=== PATIENT | female | born 1945 | race Caucasian/White ===

== ENCOUNTER 2018-01-03 20:20 | Inpatient (IN) | payer MEDICARE, OTHER ==
[2018-01-03] MEDS: DEXTROSE 5%-0.9% NACL 1,000 ML IV ×2 (22:00→22:20)
[2018-01-03] MEDS ORDERED: ACETAMINOPHEN 1000MG/100ML IV 100 ML IVPB (22:00)
[2018-01-03 22:57] LABS: WHITE BLOOD COUNT 7.6 10^3/ul (4.8-10.8)
[2018-01-03 22:57] LABS: ABNORMAL IP MESSAGE 1; HEMATOCRIT 25.4 % (37.0-47.0); HEMOGLOBIN 7.4 g/dl (12.0-16.0); MEAN CORPUSCULAR HEMOGLOBIN 31.2 pg (29.0-33.0); MEAN CORPUSCULAR HGB CONC 29.1 g/dl (32.0-37.0); MEAN CORPUSCULAR VOLUME 107.2 fl (82.0-101.0); MEAN PLATELET VOLUME 10.5 fl (7.4-10.4); NUCLEATED RED BLOOD CELLS% 0.3 /100WBC (0.0-0.0); PLATELET COUNT 123 10^3/UL (140-415); RED BLOOD COUNT 2.37 10^6/ul (4.20-5.40); RED CELL DISTRIBUTION WIDTH 16.6 % (11.5-14.5)
[2018-01-03 22:59] LABS: ADD MAN DIFF? YES; POSITIVE DIFF @See below
[2018-01-03] MEDS: SOD CHLORIDE 0.9% 1,000 ML IV (23:03)
[2018-01-03] MEDS: PHENYLephrine 40 MG in DEXTROSE 5% 496 ML IV (23:24)
[2018-01-03 23:40] LABS: LACTIC ACID 5.5 mmol/L (0.5-2.0)
[2018-01-03 23:51] LABS: ANISOCYTOSIS 1+ (0-0); BAND NEUTROPHILS #M 1.2 10^3/ul (0.0-0.6); BAND NEUTROPHILS % (M) 16 % (0-4); GIANT THROMBO% (M) 2 % (0-0); LYMPHOCYTES #M 0.4 10^3/ul (0.8-2.9); LYMPHOCYTES % (M) 6 % (15-51); MICROCYTOSIS 1+ (0-0); MONOCYTES % (M) 1 % (0-11); MYELOCYTES % (M) 1 % (0-0); PLATELET ESTIMATE DECREASED; POIKILOCYTOSIS 1+ (0-0); POLYCHROMASIA 2+ (0-0); REACTIVE LYMPHOCYTES #M 0.1 10^3/ul (0.0-0.0); REACTIVE LYMPHOCYTES% (M) 2 % (0-0); SEG NEUT #M 5.7 10^3/ul (1.6-7.5); SEGMENTED NEUTROPHILS (M) % 74 % (39-77); SMUDGE%M 5 % (0-0)
[2018-01-04] MEDS: SOD CHLORIDE 0.9% 1,000 ML IV ×4 (00:05→17:52)
[2018-01-04 00:24] LABS: ADD UMIC YES; UR ASCORBIC ACID NEGATIVE (NEGATIVE); UR BACTERIA FEW /HPF (NONE SEEN); UR BILIRUBIN (Dip) 1+ mg/dL (NEGATIVE); UR BLOOD (Dip) 2+ mg/dL (NEGATIVE); UR CLARITY CLOUDY (CLEAR); UR COLOR AMBER (YELLOW); UR GLUCOSE (Dip) NEGATIVE (NEGATIVE); UR KETONES (Dip) TRACE mg/dL (NEGATIVE); UR LEUKOCYTE ESTERASE (Dip) 1+ Leu/ul (NEGATIVE); UR MUCUS FEW /HPF (NONE SEEN); UR NITRITE (Dip) NEGATIVE (NEGATIVE); UR NONSQUAMOUS EPITHELIAL CELL 6 /HPF (NONE SEEN); UR RBC 9 /HPF (0-5); UR SPECIFIC GRAVITY (Dip) 1.021 (1.003-1.030); UR SQUAMOUS EPITHELIAL CELL MANY /HPF (FEW); UR TOTAL PROTEIN (Dip) 1+ mg/dl (NEGATIVE); UR UROBILINOGEN (Dip) 1+ mg/dL (NEGATIVE); UR WBC 16 /HPF (0-5)
[2018-01-04] MEDS: SOD CHLORIDE 0.9% 250 ML IV* (00:49)
[2018-01-04 01:17] LABS: ALANINE AMINOTRANSFERASE 63 IU/L (13-69); ALBUMIN 2.5 g/dl (3.3-4.9); ALKALINE PHOSPHATASE 63 IU/L (42-121); ANION GAP 14 (5-13); ASPARTATE AMINO TRANSFERASE 39 IU/L (15-46); BILIRUBIN,INDIRECT 0.1 mg/dl (0-1.1); BILIRUBIN,TOTAL 0.1 mg/dl (0.2-1.3); BLOOD UREA NITROGEN 25 mg/dl (7-20); CALCIUM 7.5 mg/dl (8.4-10.2); CARBON DIOXIDE 20 mmol/L (21-31); CHLORIDE 99 mmol/L (97-110); Estimated GFR > 60 mL/min (>60); GLUCOSE 191 mg/dl (70-220); POTASSIUM 4.3 mmol/L (3.5-5.1); SODIUM 133 mmol/L (135-144); TOTAL PROTEIN 4.8 g/dl (6.1-8.1)
[2018-01-04 01:18] LABS: ALBUMIN/GLOBULIN RATIO 1.08
[2018-01-04] MEDS: PANTOPRAZOLE 40 MG INJ IV ×2 (05:49→17:45)
[2018-01-04 06:47] LABS: LACTIC ACID 5.1 mmol/L (0.5-2.0)
[2018-01-04 06:55] LABS: ALANINE AMINOTRANSFERASE 60 IU/L (13-69); ALBUMIN 2.6 g/dl (3.3-4.9); ALBUMIN/GLOBULIN RATIO 0.92; ALKALINE PHOSPHATASE 69 IU/L (42-121); ANION GAP 12 (5-13); ASPARTATE AMINO TRANSFERASE 36 IU/L (15-46); BILIRUBIN,INDIRECT 0.4 mg/dl (0-1.1); BILIRUBIN,TOTAL 0.4 mg/dl (0.2-1.3); BLOOD UREA NITROGEN 26 mg/dl (7-20); CALCIUM 7.8 mg/dl (8.4-10.2); CARBON DIOXIDE 19 mmol/L (21-31); CHLORIDE 102 mmol/L (97-110); CREATININE 0.66 mg/dl (0.44-1.00); Estimated GFR > 60 mL/min (>60); GLUCOSE 225 mg/dl (70-220); MAGNESIUM 1.7 mg/dl (1.7-2.5); PHOSPHORUS 4.6 mg/dl (2.5-4.9); POTASSIUM 4.4 mmol/L (3.5-5.1); SODIUM 133 mmol/L (135-144); TOTAL PROTEIN 5.4 g/dl (6.1-8.1)
[2018-01-04] MEDS: PHENYLephrine 40 MG in DEXTROSE 5% 496 ML IV ×2 (06:59→13:27)
[2018-01-04 07:58] LABS: WHITE BLOOD COUNT 8.1 10^3/ul (4.8-10.8)
[2018-01-04 07:58] LABS: ABNORMAL IP MESSAGE 1; HEMATOCRIT 33.6 % (37.0-47.0); HEMOGLOBIN 11.6 g/dl (12.0-16.0); MEAN CORPUSCULAR HEMOGLOBIN 31.4 pg (29.0-33.0); MEAN CORPUSCULAR HGB CONC 34.5 g/dl (32.0-37.0); MEAN CORPUSCULAR VOLUME 90.8 fl (82.0-101.0); MEAN PLATELET VOLUME 11.4 fl (7.4-10.4); NUCLEATED RED BLOOD CELLS% 0.7 /100WBC (0.0-0.0); PLATELET COUNT 136 10^3/UL (140-415); RED CELL DISTRIBUTION WIDTH 14.8 % (11.5-14.5)
[2018-01-04] MEDS ORDERED: VANCOMYCIN IV PER PHARMACY XX (08:00)
[2018-01-04 08:01] LABS: ADD MAN DIFF? YES; POSITIVE DIFF @See below
[2018-01-04] MEDS: DEXAMETHASONE 4 MG/ML 1 ML INJ IV ×3 (09:03→21:54)
[2018-01-04] MEDS: CEFEPIME 1GM/50 ML (PMX) 50 ML IVPB ×2 (09:03→20:49)
[2018-01-04] MEDS ORDERED: GLUCOSE GEL 15 GRAM TUBE PO ×2 (09:30)
[2018-01-04] MEDS ORDERED: DEXTROSE 50% 50 ML SYRINGE IV ×2 (09:30)
[2018-01-04] MEDS ORDERED: GLUCAGON 1 MG INJ IM (09:30)
[2018-01-04] MEDS ORDERED: GLUCOSE GEL 15 GRAM TUBE BUCCAL (09:30)
[2018-01-04] MEDS: LEVETIRACETAM IV 500 MG in DEXTROSE 5% 100 ML IVPB ×2 (09:48→20:46)
[2018-01-04 10:09] LABS: BAND NEUTROPHILS #M 3.1 10^3/ul (0.0-0.6); BAND NEUTROPHILS % (M) 39 % (0-4); ERYTHROBLAST% (NRBC) (M) 1 % (0-0); LYMPHOCYTES #M 1.4 10^3/ul (0.8-2.9); LYMPHOCYTES % (M) 18 % (15-51); METAMYELOCYTES %M 1 % (0-0); MONOCYTE #M 0.3 10^3/ul (0.3-0.9); MONOCYTES % (M) 4 % (0-11); MYELOCYTES % (M) 1 % (0-0); PLATELET ESTIMATE DECREASED; POIKILOCYTOSIS 1+ (0-0); POLYCHROMASIA 1+ (0-0); REACTIVE LYMPHOCYTES #M 0.3 10^3/ul (0.0-0.0); REACTIVE LYMPHOCYTES% (M) 4 % (0-0); SEG NEUT #M 2.9 10^3/ul (1.6-7.5); SEGMENTED NEUTROPHILS (M) % 33 % (39-77); SMUDGE%M 6 % (0-0)
[2018-01-04] MEDS: metroNIDAZOLE 500 MG/NS (PMX) 100 ML IVPB ×3 (10:10→21:54)
[2018-01-04 10:35] LABS: AADO2 Arterial 137.4 mmHg (7.0-24.0); Allen Test ACCEPTAB; Arterial Base Excess -7.6 mmol/L (-3.0-3); Arterial Blood Gas Oxygen Sat 95.9 mmHG (95.0-98.0); Arterial COHb 0.3 % (0.0-3.0); Arterial Fraction of Oxyhgb 95.2 % (93.0-99.0); Arterial HCO3 13.5 mmol/L (22.0-26.0); Arterial MetHb 0.4 % (0.0-1.5); Arterial Total Hemglobin 11.6 g/dl (12.0-18.0); MODE NASAL CANNULA; Site Right Radial
[2018-01-04] MEDS: CYCLOPENTOLATE 1% 2 ML OPH RIGHT EYE ×3 (11:01→20:49)
[2018-01-04] MEDS: VANCOMYCIN 1.75 GM in SOD CHLORIDE 0.9% 500 ML IVPB (11:02)
[2018-01-04] MEDS: INSULIN ASPART [NOVOLOG] 3 ML PEN SC ×3 (13:29→20:56)
[2018-01-04 14:06] LABS: HEMATOCRIT 25.9 % (37.0-47.0); HEMOGLOBIN 8.8 g/dl (12.0-16.0)
[2018-01-04 14:06] LABS: PLATELET COUNT 128 10^3/UL (140-415)
[2018-01-04 14:27] LABS: INR 1.46; PT RATIO 1.4
[2018-01-04 14:32] LABS: PARTIAL THROMBOPLASTIN TIME 32.8 Sec (23.0-35.0)
[2018-01-04 14:36] LABS: D-DIMER 2851.41 ng/ml (<460)
[2018-01-04 14:52] LABS: FIBRIN SPLIT PRODUCT <10 ug/ml (<10)
[2018-01-04 15:47] LABS: THROMBIN TIME 15.4 SEC (13.8-19.1)
[2018-01-04 18:30] LABS: HEMATOCRIT 25.3 % (37.0-47.0); HEMOGLOBIN 8.9 g/dl (12.0-16.0)
[2018-01-05 00:38] LABS: HEMATOCRIT 22.2 % (37.0-47.0); HEMOGLOBIN 7.7 g/dl (12.0-16.0)
[2018-01-05] MEDS: SOD CHLORIDE 0.9% 1,000 ML IV ×4 (00:52→19:00)
[2018-01-05] MEDS: INSULIN ASPART [NOVOLOG] 3 ML PEN SC ×6 (01:25→20:59)
[2018-01-05] MEDS: PHENYLephrine 40 MG in DEXTROSE 5% 496 ML IV (02:56)
[2018-01-05 05:05] LABS: ADD MAN DIFF? NO
[2018-01-05 05:08] LABS: WHITE BLOOD COUNT 9.3 10^3/ul (4.8-10.8)
[2018-01-05 05:08] LABS: ABNORMAL IP MESSAGE 1; BASOPHILS % 0.2 % (0.0-2.0); HEMATOCRIT 20.3 % (37.0-47.0); HEMOGLOBIN 7.1 g/dl (12.0-16.0); LYMPHOCYTES # 0.8 10^3/ul (0.8-2.9); LYMPHOCYTES % 8.2 % (15.0-51.0); MEAN CORPUSCULAR HEMOGLOBIN 31.8 pg (29.0-33.0); MEAN PLATELET VOLUME 10.8 fl (7.4-10.4); MONOCYTE # 0.4 10^3/ul (0.3-0.9); MONOCYTES % 4.6 % (0.0-11.0); NEUTROPHIL # 7.5 10^3/ul (1.6-7.5); NEUTROPHILS % 80.9 % (39.0-77.0); NUCLEATED RED BLOOD CELLS% 0.2 /100WBC (0.0-0.0); PLATELET COUNT 98 10^3/UL (140-415); RED BLOOD COUNT 2.23 10^6/ul (4.20-5.40); RED CELL DISTRIBUTION WIDTH 15.3 % (11.5-14.5)
[2018-01-05 05:23] LABS: HEMOGLOBIN A1C 5.9 % (0-5.9)
[2018-01-05 05:30] LABS: POSITIVE DIFF @See below
[2018-01-05 05:32] LABS: ALANINE AMINOTRANSFERASE 214 IU/L (13-69); ALBUMIN 2.1 g/dl (3.3-4.9); ALBUMIN/GLOBULIN RATIO 0.84; ALKALINE PHOSPHATASE 51 IU/L (42-121); ANION GAP 5 (5-13); ASPARTATE AMINO TRANSFERASE 186 IU/L (15-46); BILIRUBIN,INDIRECT 0.4 mg/dl (0-1.1); BILIRUBIN,TOTAL 0.4 mg/dl (0.2-1.3); BLOOD UREA NITROGEN 29 mg/dl (7-20); CALCIUM 7.5 mg/dl (8.4-10.2); CARBON DIOXIDE 20 mmol/L (21-31); CHLORIDE 108 mmol/L (97-110); CREATININE 0.69 mg/dl (0.44-1.00); Estimated GFR > 60 mL/min (>60); GLUCOSE 156 mg/dl (70-220); SODIUM 133 mmol/L (135-144); TOTAL PROTEIN 4.6 g/dl (6.1-8.1)
[2018-01-05] MEDS: metroNIDAZOLE 500 MG/NS (PMX) 100 ML IVPB ×3 (05:32→21:56)
[2018-01-05] MEDS: DEXAMETHASONE 4 MG/ML 1 ML INJ IV ×3 (05:32→21:56)
[2018-01-05] MEDS: PANTOPRAZOLE 40 MG INJ IV ×2 (05:32→17:11)
[2018-01-05 05:41] LABS: LACTIC ACID 1.4 mmol/L (0.5-2.0)
[2018-01-05 05:57] LABS: FREE T4 (FREE THYROXINE) 0.92 ng/dl (0.78-2.44)
[2018-01-05] MEDS: VANCOMYCIN 1.5 GM in SOD CHLORIDE 0.9% 250 ML IVPB (06:34)
[2018-01-05 07:31] LABS: ANISOCYTOSIS 1+ (0-0); BAND NEUTROPHILS % (M) 22 % (0-4); BURR CELLS 2+ (0-0); LYMPHOCYTES #M 0.6 10^3/ul (0.8-2.9); LYMPHOCYTES % (M) 7 % (15-51); METAMYELOCYTES #M 0.1 10^3/ul (0.0-0.0); METAMYELOCYTES %M 2 % (0-0); MICROCYTOSIS 1+ (0-0); MONOCYTES % (M) 1 % (0-11); PLATELET ESTIMATE DECREASED; POIKILOCYTOSIS 2+ (0-0); POLYCHROMASIA 2+ (0-0); REACTIVE LYMPHOCYTES #M 0.1 10^3/ul (0.0-0.0); REACTIVE LYMPHOCYTES% (M) 2 % (0-0); SEG NEUT #M 6.3 10^3/ul (1.6-7.5); SEGMENTED NEUTROPHILS (M) % 66 % (39-77); SMUDGE%M 5 % (0-0); SPHEROCYTES 1+ (0-0)
[2018-01-05] MEDS: CYCLOPENTOLATE 1% 2 ML OPH RIGHT EYE ×3 (09:46→20:52)
[2018-01-05] MEDS: LEVETIRACETAM 500 MG (PMX) 100 ML IVPB ×2 (09:46→20:45)
[2018-01-05] MEDS: CEFEPIME 1GM/50 ML (PMX) 50 ML IVPB ×2 (10:15→20:57)
[2018-01-05 12:25] LABS: HEMATOCRIT 22.9 % (37.0-47.0); HEMOGLOBIN 7.8 g/dl (12.0-16.0)
[2018-01-05 16:50] LABS: IMMEDIATE SPIN CROSSMATCH 1 5
[2018-01-05] MEDS: SOD CHLORIDE 0.9% 250 ML IV* (17:20)
[2018-01-05] MEDS: LEVALBUTEROL (NEB) 0.63 MG/3 ML AMP HHN (18:21)
[2018-01-05 23:35] LABS: HEMATOCRIT 24.6 % (37.0-47.0); HEMOGLOBIN 8.3 g/dl (12.0-16.0)
[2018-01-06] MEDS: INSULIN ASPART [NOVOLOG] 3 ML PEN SC ×6 (01:00→21:00)
[2018-01-06] MEDS: SOD CHLORIDE 0.9% 1,000 ML IV ×3 (04:34→21:36)
[2018-01-06] MEDS: PANTOPRAZOLE 40 MG INJ IV ×2 (05:00→17:19)
[2018-01-06 05:05] LABS: ADD MAN DIFF? NO
[2018-01-06 05:13] LABS: ABNORMAL IP MESSAGE 1; HEMATOCRIT 24.3 % (37.0-47.0); HEMOGLOBIN 8.2 g/dl (12.0-16.0); MEAN CORPUSCULAR HEMOGLOBIN 30.8 pg (29.0-33.0); MEAN CORPUSCULAR HGB CONC 33.7 g/dl (32.0-37.0); MEAN CORPUSCULAR VOLUME 91.4 fl (82.0-101.0); MEAN PLATELET VOLUME 9.9 fl (7.4-10.4); NUCLEATED RED BLOOD CELLS% 0.4 /100WBC (0.0-0.0); PLATELET COUNT 54 10^3/UL (140-415); RED BLOOD COUNT 2.66 10^6/ul (4.20-5.40); RED CELL DISTRIBUTION WIDTH 17.2 % (11.5-14.5)
[2018-01-06 05:13] LABS: WHITE BLOOD COUNT 7.9 10^3/ul (4.8-10.8)
[2018-01-06 05:19] LABS: POSITIVE DIFF @See below
[2018-01-06] MEDS: DEXAMETHASONE 4 MG/ML 1 ML INJ IV ×3 (05:30→22:27)
[2018-01-06] MEDS: metroNIDAZOLE 500 MG/NS (PMX) 100 ML IVPB ×3 (05:30→22:27)
[2018-01-06 05:46] LABS: ANION GAP 5 (5-13); BLOOD UREA NITROGEN 22 mg/dl (7-20); CALCIUM 7.9 mg/dl (8.4-10.2); CARBON DIOXIDE 19 mmol/L (21-31); CHLORIDE 114 mmol/L (97-110); CREATININE 0.55 mg/dl (0.44-1.00); Estimated GFR > 60 mL/min (>60); GLUCOSE 119 mg/dl (70-220); SODIUM 138 mmol/L (135-144)
[2018-01-06 06:12] LABS: HIV 1&2 ANTIBODY NEGATIVE (NEGATIVE)
[2018-01-06] MEDS: VANCOMYCIN 1.5 GM in SOD CHLORIDE 0.9% 250 ML IVPB (06:36)
[2018-01-06 06:56] LABS: ANISOCYTOSIS 1+ (0-0); BAND NEUTROPHILS #M 2.2 10^3/ul (0.0-0.6); BAND NEUTROPHILS % (M) 28 % (0-4); BURR CELLS 1+ (0-0); LYMPHOCYTES #M 0.1 10^3/ul (0.8-2.9); LYMPHOCYTES % (M) 2 % (15-51); MICROCYTOSIS 1+ (0-0); MONOCYTE #M 0.1 10^3/ul (0.3-0.9); MONOCYTES % (M) 2 % (0-11); MYELOCYTES #M 0.2 10^3/ul (0.0-0.0); MYELOCYTES % (M) 3 % (0-0); OVALOCYTES 1+ (0-0); PLATELET ESTIMATE SIG DECREASED; POIKILOCYTOSIS 3+ (0-0); POLYCHROMASIA 1+ (0-0); PROMYELOCYTES #M 0.2 10^3/ul (0-0); PROMYELOCYTES % (M) 3 % (0-0); SEG NEUT #M 5.1 10^3/ul (1.6-7.5); SEGMENTED NEUTROPHILS (M) % 62 % (39-77); SMUDGE%M 2 % (0-0)
[2018-01-06] MEDS: LEVETIRACETAM 500 MG (PMX) 100 ML IVPB ×2 (09:40→21:12)
[2018-01-06] MEDS: CYCLOPENTOLATE 1% 2 ML OPH RIGHT EYE ×3 (09:41→21:17)
[2018-01-06] MEDS ORDERED: ADENOSINE 3 MG/ML SYRINGE IV (09:53)
[2018-01-06] MEDS: CEFEPIME 1GM/50 ML (PMX) 50 ML IVPB ×2 (10:11→21:44)
[2018-01-06] MEDS ORDERED: DIATR MEGLU/DIATRIZOATE SODIUM 120 ML BTL PO (10:30)
[2018-01-06] MEDS: MAGNESIUM SULFATE 1 GM/D5W 100 ML IVPB (10:40)
[2018-01-06] MEDS: IOHEXOL 14.3 MG(I)/ML (ADULT) BTL PO (12:11)
[2018-01-06] MEDS: DAPTOMYCIN IVPB (17:07)
[2018-01-06] MEDS: SOD CHLORIDE 0.9% IVPB (17:07)
[2018-01-06 17:11] LABS: TYPE AND SCREEN 1
[2018-01-06 18:50] LABS: WHITE BLOOD COUNT 9.3 10^3/ul (4.8-10.8)
[2018-01-06 18:50] LABS: ABNORMAL IP MESSAGE 1; HEMATOCRIT 23.5 % (37.0-47.0); HEMOGLOBIN 8.1 g/dl (12.0-16.0); MEAN CORPUSCULAR HEMOGLOBIN 31.3 pg (29.0-33.0); MEAN CORPUSCULAR HGB CONC 34.5 g/dl (32.0-37.0); MEAN CORPUSCULAR VOLUME 90.7 fl (82.0-101.0); NUCLEATED RED BLOOD CELLS% 0.6 /100WBC (0.0-0.0); PLATELET COUNT 62 10^3/UL (140-415); RED BLOOD COUNT 2.59 10^6/ul (4.20-5.40); RED CELL DISTRIBUTION WIDTH 17.1 % (11.5-14.5)
[2018-01-06 19:01] LABS: ADD MAN DIFF? YES; POSITIVE DIFF @See below
[2018-01-06] MEDS: MAGNESIUM SULFATE 2 GM/50 ML 50 ML IVPB (19:52)
[2018-01-06 19:55] LABS: BAND NEUTROPHILS #M 1.7 10^3/ul (0.0-0.6); BAND NEUTROPHILS % (M) 19 % (0-4); BURR CELLS 1+ (0-0); LYMPHOCYTES #M 0.4 10^3/ul (0.8-2.9); LYMPHOCYTES % (M) 5 % (15-51); METAMYELOCYTES #M 0.2 10^3/ul (0.0-0.0); METAMYELOCYTES %M 3 % (0-0); OVALOCYTES 1+ (0-0); PLATELET ESTIMATE DECREASED; POIKILOCYTOSIS 1+ (0-0); POLYCHROMASIA 1+ (0-0); PROMYELOCYTES % (M) 1 % (0-0); SEG NEUT #M 6.9 10^3/ul (1.6-7.5); SEGMENTED NEUTROPHILS (M) % 72 % (39-77); SMUDGE%M 2 % (0-0)
[2018-01-06] MEDS ORDERED: ADENOSINE 6 MG INJ IV (20:00)
[2018-01-06 20:29] LABS: PLATELET COUNT 54 10^3/UL (140-415)
[2018-01-06] MEDS: SOD CHLORIDE 0.9% 250 ML IV* (21:00)
[2018-01-07 00:36] LABS: HEMATOCRIT 22.5 % (37.0-47.0); HEMOGLOBIN 7.6 g/dl (12.0-16.0)
[2018-01-07] MEDS: INSULIN ASPART [NOVOLOG] 3 ML PEN SC ×6 (01:00→20:24)
[2018-01-07 03:28] LABS: TYPE AND SCREEN 1
[2018-01-07 03:58] LABS: IMMEDIATE SPIN CROSSMATCH 1 1
[2018-01-07] MEDS: DEXAMETHASONE 4 MG/ML 1 ML INJ IV ×3 (05:01→21:41)
[2018-01-07] MEDS: PANTOPRAZOLE 40 MG INJ IV ×2 (05:03→17:32)
[2018-01-07] MEDS: metroNIDAZOLE 500 MG/NS (PMX) 100 ML IVPB ×3 (05:05→22:35)
[2018-01-07] MEDS ORDERED: TPN 1,000 ML IV (08:07)
[2018-01-07 08:41] LABS: ABNORMAL IP MESSAGE 1; HEMATOCRIT 28.3 % (37.0-47.0); HEMOGLOBIN 9.6 g/dl (12.0-16.0); MEAN CORPUSCULAR HEMOGLOBIN 30.5 pg (29.0-33.0); MEAN CORPUSCULAR HGB CONC 33.9 g/dl (32.0-37.0); MEAN CORPUSCULAR VOLUME 89.8 fl (82.0-101.0); MEAN PLATELET VOLUME 9.8 fl (7.4-10.4); NUCLEATED RED BLOOD CELLS% 0.7 /100WBC (0.0-0.0); PLATELET COUNT 84 10^3/UL (140-415); RED BLOOD COUNT 3.15 10^6/ul (4.20-5.40); RED CELL DISTRIBUTION WIDTH 16.6 % (11.5-14.5)
[2018-01-07 08:41] LABS: WHITE BLOOD COUNT 10.1 10^3/ul (4.8-10.8)
[2018-01-07 08:42] LABS: ADD MAN DIFF? YES; POSITIVE DIFF @See below
[2018-01-07] MEDS: LEVETIRACETAM 500 MG (PMX) 100 ML IVPB ×2 (08:54→20:23)
[2018-01-07] MEDS: CEFEPIME 1GM/50 ML (PMX) 50 ML IVPB ×2 (08:54→21:37)
[2018-01-07] MEDS: CYCLOPENTOLATE 1% 2 ML OPH RIGHT EYE ×3 (08:59→20:28)
[2018-01-07 09:18] LABS: ANION GAP 10 (5-13); BLOOD UREA NITROGEN 15 mg/dl (7-20); CALCIUM 8.3 mg/dl (8.4-10.2); CARBON DIOXIDE 20 mmol/L (21-31); CHLORIDE 110 mmol/L (97-110); Estimated GFR > 60 mL/min (>60); GLUCOSE 106 mg/dl (70-220); POTASSIUM 3.2 mmol/L (3.5-5.1); SODIUM 140 mmol/L (135-144)
[2018-01-07 09:21] LABS: MAGNESIUM 2.1 mg/dl (1.7-2.5)
[2018-01-07 09:45] LABS: CREATINE KINASE < 20 IU/L (23-200)
[2018-01-07 09:52] LABS: PHOSPHORUS 3.7 mg/dl (2.5-4.9)
[2018-01-07 09:52] LABS: TRIGLYCERIDES 227 mg/dl (0-149)
[2018-01-07 10:26] LABS: ANISOCYTOSIS 1+ (0-0); BAND NEUTROPHILS #M 3.8 10^3/ul (0.0-0.6); BAND NEUTROPHILS % (M) 38 % (0-4); ERYTHROBLAST% (NRBC) (M) 1 % (0-0); LYMPHOCYTES #M 0.2 10^3/ul (0.8-2.9); LYMPHOCYTES % (M) 2 % (15-51); MICROCYTOSIS 1+ (0-0); MONOCYTE #M 0.4 10^3/ul (0.3-0.9); MONOCYTES % (M) 4 % (0-11); MYELOCYTES #M 0.2 10^3/ul (0.0-0.0); MYELOCYTES % (M) 2 % (0-0); PLATELET ESTIMATE DECREASED; POIKILOCYTOSIS 2+ (0-0); POLYCHROMASIA 3+ (0-0); SEG NEUT #M 5.8 10^3/ul (1.6-7.5); SEGMENTED NEUTROPHILS (M) % 54 % (39-77)
[2018-01-07] MEDS: SOD CHLORIDE 0.9% 1,000 ML IV (11:18)
[2018-01-07] MEDS: POTASSIUM CHLORIDE 50 ML IVPB ×3 (11:18→13:13)
[2018-01-07] MEDS: ACCU-CHEK XX ×4 (12:00→21:41)
[2018-01-07 12:09] LABS: HEMATOCRIT 26.2 % (37.0-47.0); HEMOGLOBIN 9.1 g/dl (12.0-16.0)
[2018-01-07] MEDS: LEVALBUTEROL (NEB) 0.63 MG/3 ML AMP HHN ×3 (12:41→20:44)
[2018-01-07] MEDS ORDERED: DILTIAZEM 25 MG INJ IV (13:00)
[2018-01-07] MEDS: TPN 1,000 ML IV (14:14)
[2018-01-07] MEDS: LIDOCAINE 1% (MPF) 10 ML INJ (15:42)
[2018-01-07] MEDS: SOD CHLORIDE 0.9% IVPB (17:32)
[2018-01-07] MEDS: DAPTOMYCIN IVPB (17:32)
[2018-01-07] MEDS: METOPROLOL 5 MG INJ IV (17:35)
[2018-01-07 19:01] LABS: HEMATOCRIT 26.9 % (37.0-47.0); HEMOGLOBIN 9.1 g/dl (12.0-16.0)
[2018-01-07] MEDS: morphine 2 MG INJ IV (21:58)
[2018-01-08] MEDS: SOD CHLORIDE 0.9% 1,000 ML IV ×2 (00:10→09:08)
[2018-01-08] MEDS: METOPROLOL 5 MG INJ IV ×4 (00:11→17:38)
[2018-01-08] MEDS: INSULIN ASPART [NOVOLOG] 3 ML PEN SC ×6 (00:14→21:12)
[2018-01-08] MEDS: ACCU-CHEK XX ×6 (00:29→21:09)
[2018-01-08 00:38] LABS: HEMOGLOBIN 8.9 g/dl (12.0-16.0)
[2018-01-08] MEDS: LEVALBUTEROL (NEB) 0.63 MG/3 ML AMP HHN ×2 (01:57→20:26)
[2018-01-08] MEDS: PANTOPRAZOLE 40 MG INJ IV ×2 (05:01→17:45)
[2018-01-08] MEDS: DEXAMETHASONE 4 MG/ML 1 ML INJ IV ×3 (05:01→21:57)
[2018-01-08] MEDS: metroNIDAZOLE 500 MG/NS (PMX) 100 ML IVPB ×3 (05:01→21:57)
[2018-01-08 06:01] LABS: ABNORMAL IP MESSAGE 1; HEMATOCRIT 25.7 % (37.0-47.0); HEMOGLOBIN 8.7 g/dl (12.0-16.0); MEAN CORPUSCULAR HEMOGLOBIN 30.3 pg (29.0-33.0); MEAN CORPUSCULAR HGB CONC 33.9 g/dl (32.0-37.0); MEAN CORPUSCULAR VOLUME 89.5 fl (82.0-101.0); MEAN PLATELET VOLUME 10.4 fl (7.4-10.4); NUCLEATED RED BLOOD CELLS% 0.4 /100WBC (0.0-0.0); PLATELET COUNT 56 10^3/UL (140-415); RED BLOOD COUNT 2.87 10^6/ul (4.20-5.40); RED CELL DISTRIBUTION WIDTH 17.2 % (11.5-14.5)
[2018-01-08 06:01] LABS: WHITE BLOOD COUNT 9.3 10^3/ul (4.8-10.8)
[2018-01-08 06:05] LABS: ADD MAN DIFF? YES; POSITIVE DIFF @See below
[2018-01-08 06:19] LABS: ANION GAP 4 (5-13); BLOOD UREA NITROGEN 19 mg/dl (7-20); CALCIUM 7.9 mg/dl (8.4-10.2); CARBON DIOXIDE 23 mmol/L (21-31); CHLORIDE 112 mmol/L (97-110); CREATININE 0.38 mg/dl (0.44-1.00); Estimated GFR > 60 mL/min (>60); GLUCOSE 251 mg/dl (70-220); MAGNESIUM 1.7 mg/dl (1.7-2.5); PHOSPHORUS 2.5 mg/dl (2.5-4.9); POTASSIUM 3.2 mmol/L (3.5-5.1); SODIUM 139 mmol/L (135-144)
[2018-01-08] MEDS: TPN 1,000 ML IV (07:04)
[2018-01-08 07:19] LABS: ANISOCYTOSIS 1+ (0-0); BAND NEUTROPHILS #M 2.4 10^3/ul (0.0-0.6); BAND NEUTROPHILS % (M) 26 % (0-4); BURR CELLS 1+ (0-0); LYMPHOCYTES % (M) 1 % (15-51); METAMYELOCYTES %M 1 % (0-0); MONOCYTE #M 0.1 10^3/ul (0.3-0.9); MONOCYTES % (M) 2 % (0-11); MYELOCYTES % (M) 1 % (0-0); PLATELET ESTIMATE DECREASED; POIKILOCYTOSIS 1+ (0-0); POLYCHROMASIA 1+ (0-0); SEG NEUT #M 6.6 10^3/ul (1.6-7.5); SEGMENTED NEUTROPHILS (M) % 69 % (39-77); SMUDGE%M 8 % (0-0); SPHEROCYTES 1+ (0-0)
[2018-01-08] MEDS: LEVETIRACETAM 500 MG (PMX) 100 ML IVPB ×2 (09:08→21:25)
[2018-01-08] MEDS: CYCLOPENTOLATE 1% 2 ML OPH RIGHT EYE ×3 (09:08→21:09)
[2018-01-08] MEDS: CEFEPIME 1GM/50 ML (PMX) 50 ML IVPB ×2 (09:11→21:09)
[2018-01-08] MEDS: POTASSIUM PHOSPHATE 15 MM in SOD CHLORIDE 0.9% 250 ML IV (11:44)
[2018-01-08 12:11] LABS: HEMATOCRIT 26.7 % (37.0-47.0)
[2018-01-08] MEDS: morphine 2 MG INJ IV (12:38)
[2018-01-08] MEDS: INSULIN GLARGINE [LANTus] (100 UNITS/ML) SYG SC (13:38)
[2018-01-08] MEDS: hydrALAzine 20 MG INJ IV (13:44)
[2018-01-08] MEDS: SOD CHLORIDE 0.9% IVPB (17:37)
[2018-01-08] MEDS: DAPTOMYCIN IVPB (17:37)
[2018-01-08] MEDS: MAGNESIUM SULFATE 1 GM/D5W 100 ML IVPB (17:45)
[2018-01-09] MEDS: METOPROLOL 5 MG INJ IV ×5 (00:13→23:50)
[2018-01-09] MEDS: TPN 1,000 ML IV ×2 (00:13→16:29)
[2018-01-09 00:57] LABS: HEMATOCRIT 26.9 % (37.0-47.0); HEMOGLOBIN 9.1 g/dl (12.0-16.0)
[2018-01-09] MEDS: ACCU-CHEK XX ×6 (01:36→21:13)
[2018-01-09] MEDS: INSULIN ASPART [NOVOLOG] 3 ML PEN SC ×6 (01:37→21:17)
[2018-01-09] MEDS: morphine 2 MG INJ IV (03:43)
[2018-01-09 05:13] LABS: ABNORMAL IP MESSAGE 1; HEMATOCRIT 26.8 % (37.0-47.0); HEMOGLOBIN 9.1 g/dl (12.0-16.0); MEAN CORPUSCULAR HEMOGLOBIN 30.3 pg (29.0-33.0); MEAN CORPUSCULAR VOLUME 89.3 fl (82.0-101.0); MEAN PLATELET VOLUME 10.2 fl (7.4-10.4); NUCLEATED RED BLOOD CELLS% 0.2 /100WBC (0.0-0.0); RED CELL DISTRIBUTION WIDTH 17.1 % (11.5-14.5)
[2018-01-09 05:13] LABS: WHITE BLOOD COUNT 9.7 10^3/ul (4.8-10.8)
[2018-01-09 05:30] LABS: ANION GAP 5 (5-13); BLOOD UREA NITROGEN 23 mg/dl (7-20); CALCIUM 8.1 mg/dl (8.4-10.2); CARBON DIOXIDE 27 mmol/L (21-31); CHLORIDE 108 mmol/L (97-110); CREATININE 0.36 mg/dl (0.44-1.00); Estimated GFR > 60 mL/min (>60); GLUCOSE 196 mg/dl (70-220); MAGNESIUM 1.9 mg/dl (1.7-2.5); PHOSPHORUS 2.7 mg/dl (2.5-4.9); POTASSIUM 3.2 mmol/L (3.5-5.1); SODIUM 140 mmol/L (135-144)
[2018-01-09 05:41] LABS: ADD MAN DIFF? YES; POSITIVE DIFF @See below
[2018-01-09 05:42] LABS: PLATELET COUNT 49 10^3/UL (140-415)
[2018-01-09] MEDS: PANTOPRAZOLE 40 MG INJ IV ×2 (05:42→17:03)
[2018-01-09] MEDS: metroNIDAZOLE 500 MG/NS (PMX) 100 ML IVPB ×3 (05:43→21:13)
[2018-01-09] MEDS: DEXAMETHASONE 4 MG/ML 1 ML INJ IV ×3 (05:43→21:13)
[2018-01-09 07:09] LABS: BAND NEUTROPHILS #M 0.7 10^3/ul (0.0-0.6); BAND NEUTROPHILS % (M) 8 % (0-4); BURR CELLS 1+ (0-0); EOSINOPHILS % (M) 1 % (0-7); LYMPHOCYTES #M 0.1 10^3/ul (0.8-2.9); LYMPHOCYTES % (M) 2 % (15-51); METAMYELOCYTES #M 0.2 10^3/ul (0.0-0.0); METAMYELOCYTES %M 3 % (0-0); MONOCYTES % (M) 1 % (0-11); MYELOCYTES #M 0.3 10^3/ul (0.0-0.0); MYELOCYTES % (M) 4 % (0-0); PLATELET ESTIMATE SIG DECREASED; POIKILOCYTOSIS 1+ (0-0); SEG NEUT #M 7.9 10^3/ul (1.6-7.5); SEGMENTED NEUTROPHILS (M) % 81 % (39-77); SPHEROCYTES 1+ (0-0); TEAR DROP CELLS 1+ (0-0)
[2018-01-09] MEDS: INSULIN GLARGINE [LANTus] (100 UNITS/ML) SYG SC (08:21)
[2018-01-09] MEDS: CEFEPIME 1GM/50 ML (PMX) 50 ML IVPB ×2 (08:21→20:59)
[2018-01-09] MEDS: CYCLOPENTOLATE 1% 2 ML OPH RIGHT EYE ×3 (08:21→21:56)
[2018-01-09] MEDS: hydrALAzine 20 MG INJ IV ×2 (09:16→16:29)
[2018-01-09] MEDS: LEVETIRACETAM 500 MG (PMX) 100 ML IVPB ×2 (09:16→21:00)
[2018-01-09] MEDS: POTASSIUM CHLORIDE 50 ML IVPB ×3 (10:02→12:21)
[2018-01-09] MEDS: MAGNESIUM SULFATE 2 GM/50 ML 50 ML IVPB (11:10)
[2018-01-09 12:55] LABS: HEMOGLOBIN 10.2 g/dl (12.0-16.0)
[2018-01-09] MEDS: FAT EMULSION 20% 250 ML IV (13:34)
[2018-01-09] MEDS: POTASSIUM CHLORIDE 100 ML IVPB ×2 (14:58→16:28)
[2018-01-09 15:27] LABS: HEPARIN INDUCED PLATELET AB NEGATIVE (NEGATIVE)
[2018-01-09] MEDS: SOD CHLORIDE 0.9% IVPB (16:29)
[2018-01-09] MEDS: DAPTOMYCIN IVPB (16:29)
[2018-01-09 18:08] LABS: HEMATOCRIT 31.6 % (37.0-47.0); HEMOGLOBIN 10.9 g/dl (12.0-16.0)
[2018-01-10] MEDS: ACCU-CHEK XX ×6 (00:35→21:04)
[2018-01-10 00:37] LABS: HEMATOCRIT 31.5 % (37.0-47.0); HEMOGLOBIN 10.7 g/dl (12.0-16.0)
[2018-01-10] MEDS: INSULIN ASPART [NOVOLOG] 3 ML PEN SC ×6 (00:38→21:04)
[2018-01-10 04:54] LABS: HEMATOCRIT 31.1 % (37.0-47.0); HEMOGLOBIN 10.5 g/dl (12.0-16.0)
[2018-01-10 05:31] LABS: ANION GAP 7 (5-13); BLOOD UREA NITROGEN 27 mg/dl (7-20); CALCIUM 8.4 mg/dl (8.4-10.2); CARBON DIOXIDE 29 mmol/L (21-31); CHLORIDE 101 mmol/L (97-110); CREATININE 0.33 mg/dl (0.44-1.00); Estimated GFR > 60 mL/min (>60); GLUCOSE 217 mg/dl (70-220); PHOSPHORUS 2.1 mg/dl (2.5-4.9); SODIUM 137 mmol/L (135-144)
[2018-01-10] MEDS: PANTOPRAZOLE 40 MG INJ IV ×2 (05:57→17:03)
[2018-01-10] MEDS: DEXAMETHASONE 4 MG/ML 1 ML INJ IV ×3 (05:58→22:40)
[2018-01-10] MEDS: METOPROLOL 5 MG INJ IV ×3 (05:58→17:04)
[2018-01-10] MEDS: metroNIDAZOLE 500 MG/NS (PMX) 100 ML IVPB ×3 (05:58→22:40)
[2018-01-10] MEDS: TPN 1,000 ML IV (08:03)
[2018-01-10] MEDS: LEVETIRACETAM 500 MG (PMX) 100 ML IVPB ×2 (08:13→20:57)
[2018-01-10] MEDS: CYCLOPENTOLATE 1% 2 ML OPH RIGHT EYE ×3 (08:14→21:00)
[2018-01-10] MEDS: CEFEPIME 1GM/50 ML (PMX) 50 ML IVPB ×2 (08:28→21:33)
[2018-01-10] MEDS: INSULIN GLARGINE [LANTus] (100 UNITS/ML) SYG SC (09:51)
[2018-01-10 12:24] LABS: HEMATOCRIT 33.5 % (37.0-47.0); HEMOGLOBIN 11.2 g/dl (12.0-16.0)
[2018-01-10] MEDS: DAPTOMYCIN IVPB (15:20)
[2018-01-10] MEDS: SOD CHLORIDE 0.9% IVPB (15:20)
[2018-01-10] MEDS: SODIUM PHOSPHATE 15 MMOL in SOD CHLORIDE 0.9% 250 ML IV (16:27)
[2018-01-10 19:20] LABS: HEMATOCRIT 32.9 % (37.0-47.0)
[2018-01-11] MEDS: TPN 1,000 ML IV ×2 (00:56→16:14)
[2018-01-11] MEDS: METOPROLOL 5 MG INJ IV ×5 (01:01→23:44)
[2018-01-11] MEDS: INSULIN ASPART [NOVOLOG] 3 ML PEN SC ×7 (01:21→23:51)
[2018-01-11] MEDS: ACCU-CHEK XX ×6 (01:22→21:21)
[2018-01-11 01:24] LABS: HEMATOCRIT 31.2 % (37.0-47.0); HEMOGLOBIN 10.5 g/dl (12.0-16.0)
[2018-01-11] MEDS: PANTOPRAZOLE 40 MG INJ IV ×2 (05:02→17:08)
[2018-01-11] MEDS: DEXAMETHASONE 4 MG/ML 1 ML INJ IV ×3 (05:02→21:21)
[2018-01-11] MEDS: metroNIDAZOLE 500 MG/NS (PMX) 100 ML IVPB ×3 (05:03→23:00)
[2018-01-11 05:24] LABS: ABNORMAL IP MESSAGE 1; HEMATOCRIT 31.3 % (37.0-47.0); HEMOGLOBIN 10.4 g/dl (12.0-16.0); MEAN CORPUSCULAR HEMOGLOBIN 30.2 pg (29.0-33.0); MEAN CORPUSCULAR HGB CONC 33.2 g/dl (32.0-37.0); PLATELET COUNT 64 10^3/UL (140-415); RED BLOOD COUNT 3.44 10^6/ul (4.20-5.40)
[2018-01-11 05:24] LABS: WHITE BLOOD COUNT 7.7 10^3/ul (4.8-10.8)
[2018-01-11 05:37] LABS: POSITIVE DIFF @See below
[2018-01-11 05:38] LABS: ADD MAN DIFF? YES
[2018-01-11 06:04] LABS: ANION GAP 6 (5-13); BLOOD UREA NITROGEN 32 mg/dl (7-20); CALCIUM 8.2 mg/dl (8.4-10.2); CARBON DIOXIDE 31 mmol/L (21-31); CHLORIDE 101 mmol/L (97-110); CREATININE 0.34 mg/dl (0.44-1.00); Estimated GFR > 60 mL/min (>60); GLUCOSE 186 mg/dl (70-220); MAGNESIUM 1.7 mg/dl (1.7-2.5); PHOSPHORUS 3.8 mg/dl (2.5-4.9); SODIUM 138 mmol/L (135-144)
[2018-01-11] MEDS: INSULIN GLARGINE [LANTus] (100 UNITS/ML) SYG SC (08:18)
[2018-01-11] MEDS: CEFEPIME 1GM/50 ML (PMX) 50 ML IVPB (08:19)
[2018-01-11] MEDS: LEVETIRACETAM 500 MG (PMX) 100 ML IVPB ×2 (08:19→20:04)
[2018-01-11] MEDS: CYCLOPENTOLATE 1% 2 ML OPH RIGHT EYE ×3 (08:19→21:21)
[2018-01-11 09:29] LABS: ANISOCYTOSIS 1+ (0-0); BAND NEUTROPHILS #M 0.2 10^3/ul (0.0-0.6); BAND NEUTROPHILS % (M) 3 % (0-4); LYMPHOCYTES #M 0.6 10^3/ul (0.8-2.9); LYMPHOCYTES % (M) 8 % (15-51); METAMYELOCYTES %M 1 % (0-0); MONOCYTE #M 0.2 10^3/ul (0.3-0.9); MONOCYTES % (M) 3 % (0-11); MYELOCYTES #M 0.3 10^3/ul (0.0-0.0); MYELOCYTES % (M) 5 % (0-0); OVALOCYTES 1+ (0-0); PLASMAC%(M) 1 % (0); PLATELET ESTIMATE DECREASED; POLYCHROMASIA 1+ (0-0); SEG NEUT #M 6.1 10^3/ul (1.6-7.5); SEGMENTED NEUTROPHILS (M) % 79 % (39-77); SMUDGE%M 7 % (0-0); TOXIC GRANULATION 1+ (0-0)
[2018-01-11] MEDS: MAGNESIUM SULFATE 3 GM in DEXTROSE 5% 100 ML IVPB (11:49)
[2018-01-11 12:17] LABS: HEMATOCRIT 32.1 % (37.0-47.0); HEMOGLOBIN 10.5 g/dl (12.0-16.0)
[2018-01-11] MEDS: SOD CHLORIDE 0.9% IVPB (16:14)
[2018-01-11] MEDS: DAPTOMYCIN IVPB (16:14)
[2018-01-11 18:22] LABS: HEMATOCRIT 32.7 % (37.0-47.0); HEMOGLOBIN 10.8 g/dl (12.0-16.0)
[2018-01-12] MEDS: ACCU-CHEK XX ×6 (01:42→21:53)
[2018-01-12] MEDS: INSULIN ASPART [NOVOLOG] 3 ML PEN SC ×5 (04:27→21:55)
[2018-01-12 05:52] LABS: WHITE BLOOD COUNT 6.9 10^3/ul (4.8-10.8)
[2018-01-12 05:52] LABS: ABNORMAL IP MESSAGE 1; HEMATOCRIT 32.6 % (37.0-47.0); HEMOGLOBIN 10.8 g/dl (12.0-16.0); MEAN CORPUSCULAR HEMOGLOBIN 30.3 pg (29.0-33.0); MEAN CORPUSCULAR HGB CONC 33.1 g/dl (32.0-37.0); MEAN CORPUSCULAR VOLUME 91.6 fl (82.0-101.0); MEAN PLATELET VOLUME 11.4 fl (7.4-10.4); PLATELET COUNT 68 10^3/UL (140-415); RED BLOOD COUNT 3.56 10^6/ul (4.20-5.40); RED CELL DISTRIBUTION WIDTH 16.3 % (11.5-14.5)
[2018-01-12] MEDS: PANTOPRAZOLE 40 MG INJ IV ×2 (05:58→17:16)
[2018-01-12] MEDS: DEXAMETHASONE 4 MG/ML 1 ML INJ IV ×3 (05:58→21:50)
[2018-01-12] MEDS: metroNIDAZOLE 500 MG/NS (PMX) 100 ML IVPB ×3 (05:58→21:50)
[2018-01-12] MEDS: METOPROLOL 5 MG INJ IV ×3 (05:58→17:17)
[2018-01-12 05:59] LABS: ADD MAN DIFF? YES; POSITIVE DIFF @See below
[2018-01-12 06:21] LABS: ANION GAP 4 (5-13); BLOOD UREA NITROGEN 36 mg/dl (7-20); CALCIUM 7.7 mg/dl (8.4-10.2); CARBON DIOXIDE 27 mmol/L (21-31); CHLORIDE 105 mmol/L (97-110); CREATININE 0.33 mg/dl (0.44-1.00); Estimated GFR > 60 mL/min (>60); GLUCOSE 156 mg/dl (70-220); SODIUM 136 mmol/L (135-144)
[2018-01-12 06:57] LABS: LACTIC ACID 1.3 mmol/L (0.5-2.0)
[2018-01-12 07:07] LABS: POTASSIUM 4.3 mmol/L (3.5-5.1)
[2018-01-12] MEDS: INSULIN GLARGINE [LANTus] (100 UNITS/ML) SYG SC ×2 (09:00→12:57)
[2018-01-12 09:12] LABS: ANISOCYTOSIS 1+ (0-0); BAND NEUTROPHILS #M 0.4 10^3/ul (0.0-0.6); BAND NEUTROPHILS % (M) 6 % (0-4); BURR CELLS 1+ (0-0); GIANT THROMBO% (M) 1 % (0-0); LYMPHOCYTES #M 0.3 10^3/ul (0.8-2.9); LYMPHOCYTES % (M) 5 % (15-51); METAMYELOCYTES %M 1 % (0-0); MICROCYTOSIS 1+ (0-0); MONOCYTES % (M) 1 % (0-11); MYELOCYTES #M 0.1 10^3/ul (0.0-0.0); MYELOCYTES % (M) 2 % (0-0); PLATELET ESTIMATE DECREASED; POIKILOCYTOSIS 2+ (0-0); POLYCHROMASIA 2+ (0-0); REACTIVE LYMPHOCYTES #M 0.1 10^3/ul (0.0-0.0); REACTIVE LYMPHOCYTES% (M) 2 % (0-0); SEG NEUT #M 5.8 10^3/ul (1.6-7.5); SEGMENTED NEUTROPHILS (M) % 83 % (39-77); SMUDGE%M 1 % (0-0)
[2018-01-12] MEDS: CYCLOPENTOLATE 1% 2 ML OPH RIGHT EYE ×3 (10:00→21:49)
[2018-01-12] MEDS: LEVETIRACETAM 500 MG (PMX) 100 ML IVPB ×3 (10:00→21:50)
[2018-01-12] MEDS: FAT EMULSION 20% 250 ML IV (10:27)
[2018-01-12] MEDS: TPN 1,000 ML IV ×2 (10:40→12:40)
[2018-01-12] MEDS: DAPTOMYCIN IVPB (16:29)
[2018-01-12] MEDS: SOD CHLORIDE 0.9% IVPB (16:29)
[2018-01-12] MEDS: MAGNESIUM SULFATE 1 GM/D5W 100 ML IVPB (17:16)
[2018-01-12] MEDS: BALSAM PERU/CASTOR OIL 60 GM TUBE TOP (21:52)
[2018-01-12] MEDS: LEVALBUTEROL (NEB) 0.63 MG/3 ML AMP HHN (22:15)
[2018-01-13] MEDS: METOPROLOL 5 MG INJ IV ×4 (00:56→17:42)
[2018-01-13] MEDS: ACCU-CHEK XX ×6 (01:00→21:05)
[2018-01-13] MEDS: ACETAMINOPHEN 1000MG/100ML IV 100 ML IVPB (01:04)
[2018-01-13] MEDS: INSULIN ASPART [NOVOLOG] 3 ML PEN SC ×6 (02:32→21:00)
[2018-01-13] MEDS: TPN 1,000 ML IV ×3 (04:03→22:03)
[2018-01-13] MEDS: PANTOPRAZOLE 40 MG INJ IV ×2 (05:35→17:41)
[2018-01-13] MEDS: DEXAMETHASONE 4 MG/ML 1 ML INJ IV ×3 (05:36→21:50)
[2018-01-13] MEDS: metroNIDAZOLE 500 MG/NS (PMX) 100 ML IVPB ×3 (05:36→21:51)
[2018-01-13 06:09] LABS: ADD MAN DIFF? NO
[2018-01-13 06:17] LABS: ABNORMAL IP MESSAGE 1; BASOPHILS % 0.1 % (0.0-2.0); HEMATOCRIT 37.5 % (37.0-47.0); HEMOGLOBIN 12.4 g/dl (12.0-16.0); LYMPHOCYTES # 0.3 10^3/ul (0.8-2.9); LYMPHOCYTES % 3.4 % (15.0-51.0); MEAN CORPUSCULAR HGB CONC 33.1 g/dl (32.0-37.0); MEAN CORPUSCULAR VOLUME 90.6 fl (82.0-101.0); MEAN PLATELET VOLUME 10.7 fl (7.4-10.4); MONOCYTE # 0.4 10^3/ul (0.3-0.9); MONOCYTES % 4.3 % (0.0-11.0); NEUTROPHIL # 8.3 10^3/ul (1.6-7.5); NEUTROPHILS % 82.3 % (39.0-77.0); NUCLEATED RED BLOOD CELLS% 0.2 /100WBC (0.0-0.0); PLATELET COUNT 85 10^3/UL (140-415); RED BLOOD COUNT 4.14 10^6/ul (4.20-5.40); RED CELL DISTRIBUTION WIDTH 16.3 % (11.5-14.5)
[2018-01-13 06:17] LABS: WHITE BLOOD COUNT 10.1 10^3/ul (4.8-10.8)
[2018-01-13 06:30] LABS: POSITIVE DIFF @See below
[2018-01-13 07:29] LABS: ANION GAP 13 (5-13); Estimated GFR > 60 mL/min (>60)
[2018-01-13 07:30] LABS: BLOOD UREA NITROGEN 34 mg/dl (7-20); CALCIUM 7.6 mg/dl (8.4-10.2); CARBON DIOXIDE 20 mmol/L (21-31); CHLORIDE 100 mmol/L (97-110); GLUCOSE 138 mg/dl (70-220); MAGNESIUM 2.1 mg/dl (1.7-2.5); PHOSPHORUS 4.4 mg/dl (2.5-4.9); POTASSIUM 4.8 mmol/L (3.5-5.1); SODIUM 133 mmol/L (135-144)
[2018-01-13 08:09] LABS: ANISOCYTOSIS 1+ (0-0); BAND NEUTROPHILS #M 3.1 10^3/ul (0.0-0.6); BAND NEUTROPHILS % (M) 31 % (0-4); BURR CELLS 1+ (0-0); LYMPHOCYTES #M 0.3 10^3/ul (0.8-2.9); LYMPHOCYTES % (M) 3 % (15-51); METAMYELOCYTES #M 0.3 10^3/ul (0.0-0.0); METAMYELOCYTES %M 3 % (0-0); MICROCYTOSIS 1+ (0-0); MONOCYTE #M 0.5 10^3/ul (0.3-0.9); MONOCYTES % (M) 5 % (0-11); MYELOCYTES #M 0.1 10^3/ul (0.0-0.0); MYELOCYTES % (M) 1 % (0-0); OVALOCYTES 1+ (0-0); PLATELET ESTIMATE DECREASED; POIKILOCYTOSIS 1+ (0-0); POLYCHROMASIA 1+ (0-0); PROMYELOCYTES #M 0.1 10^3/ul (0-0); PROMYELOCYTES % (M) 1 % (0-0); REACTIVE LYMPHOCYTES #M 0.1 10^3/ul (0.0-0.0); REACTIVE LYMPHOCYTES% (M) 1 % (0-0); SEG NEUT #M 5.9 10^3/ul (1.6-7.5); SEGMENTED NEUTROPHILS (M) % 55 % (39-77); SMUDGE%M 6 % (0-0)
[2018-01-13] MEDS: LEVALBUTEROL (NEB) 0.63 MG/3 ML AMP HHN ×2 (08:40→12:25)
[2018-01-13] MEDS: INSULIN GLARGINE [LANTus] (100 UNITS/ML) SYG SC (09:06)
[2018-01-13] MEDS: CYCLOPENTOLATE 1% 2 ML OPH RIGHT EYE ×3 (09:09→20:56)
[2018-01-13] MEDS: LEVETIRACETAM 500 MG (PMX) 100 ML IVPB ×2 (09:10→20:54)
[2018-01-13] MEDS: BALSAM PERU/CASTOR OIL 60 GM TUBE TOP ×2 (09:11→20:54)
[2018-01-13] MEDS ORDERED: VITAMIN A & D 5 GM OINT PACKET TOP (11:05)
[2018-01-13] MEDS: CHLORHEXIDINE GLUCONATE 15 ML UD CUP MT ×2 (13:24→20:54)
[2018-01-13] MEDS: SOD CHLORIDE 0.9% IVPB (15:54)
[2018-01-13] MEDS: DAPTOMYCIN IVPB (15:54)
[2018-01-14] MEDS: METOPROLOL 5 MG INJ IV ×4 (00:26→18:12)
[2018-01-14] MEDS: INSULIN ASPART [NOVOLOG] 3 ML PEN SC ×6 (00:44→22:18)
[2018-01-14] MEDS: ACCU-CHEK XX ×6 (00:44→21:56)
[2018-01-14] MEDS: PANTOPRAZOLE 40 MG INJ IV ×2 (05:18→18:11)
[2018-01-14] MEDS: DEXAMETHASONE 4 MG/ML 1 ML INJ IV ×3 (05:18→21:55)
[2018-01-14] MEDS: metroNIDAZOLE 500 MG/NS (PMX) 100 ML IVPB ×3 (05:19→21:55)
[2018-01-14 06:17] LABS: ABNORMAL IP MESSAGE 1; HEMATOCRIT 33.7 % (37.0-47.0); MEAN CORPUSCULAR HEMOGLOBIN 29.8 pg (29.0-33.0); MEAN CORPUSCULAR HGB CONC 32.6 g/dl (32.0-37.0); MEAN CORPUSCULAR VOLUME 91.3 fl (82.0-101.0); MEAN PLATELET VOLUME 11.3 fl (7.4-10.4); RED BLOOD COUNT 3.69 10^6/ul (4.20-5.40)
[2018-01-14 06:17] LABS: WHITE BLOOD COUNT 7.2 10^3/ul (4.8-10.8)
[2018-01-14 06:21] LABS: POSITIVE DIFF @See below
[2018-01-14 06:22] LABS: PLATELET COUNT 82 10^3/UL (140-415)
[2018-01-14 06:23] LABS: ADD MAN DIFF? YES
[2018-01-14 06:55] LABS: PREALBUMIN 30.4 mg/dl (17.6-36.0)
[2018-01-14 07:04] LABS: ANION GAP 5 (5-13); BLOOD UREA NITROGEN 38 mg/dl (7-20); CALCIUM 8.1 mg/dl (8.4-10.2); CARBON DIOXIDE 27 mmol/L (21-31); CHLORIDE 105 mmol/L (97-110); Estimated GFR > 60 mL/min (>60); GLUCOSE 156 mg/dl (70-220); POTASSIUM 4.6 mmol/L (3.5-5.1); SODIUM 137 mmol/L (135-144)
[2018-01-14 07:05] LABS: CREATINE KINASE < 20 IU/L (23-200)
[2018-01-14 08:41] LABS: ANISOCYTOSIS 1+ (0-0); BAND NEUTROPHILS #M 1.4 10^3/ul (0.0-0.6); BAND NEUTROPHILS % (M) 20 % (0-4); LYMPHOCYTES #M 0.2 10^3/ul (0.8-2.9); LYMPHOCYTES % (M) 4 % (15-51); METAMYELOCYTES %M 1 % (0-0); MONOCYTE #M 0.4 10^3/ul (0.3-0.9); MONOCYTES % (M) 6 % (0-11); MYELOCYTES #M 0.4 10^3/ul (0.0-0.0); MYELOCYTES % (M) 6 % (0-0); OVALOCYTES 1+ (0-0); PLATELET ESTIMATE DECREASED; POIKILOCYTOSIS 2+ (0-0); POLYCHROMASIA 1+ (0-0); REACTIVE LYMPHOCYTES% (M) 1 % (0-0); SEG NEUT #M 4.6 10^3/ul (1.6-7.5); SEGMENTED NEUTROPHILS (M) % 62 % (39-77); SMUDGE%M 1 % (0-0)
[2018-01-14] MEDS: LEVETIRACETAM 500 MG (PMX) 100 ML IVPB ×2 (08:49→21:55)
[2018-01-14] MEDS: FAT EMULSION 20% 250 ML IV (08:50)
[2018-01-14] MEDS: CYCLOPENTOLATE 1% 2 ML OPH RIGHT EYE ×3 (08:51→21:55)
[2018-01-14] MEDS: BALSAM PERU/CASTOR OIL 60 GM TUBE TOP ×2 (08:53→21:56)
[2018-01-14] MEDS: CHLORHEXIDINE GLUCONATE 15 ML UD CUP MT ×2 (09:16→21:55)
[2018-01-14] MEDS: INSULIN GLARGINE [LANTus] (100 UNITS/ML) SYG SC (09:16)
[2018-01-14] MEDS: TPN 1,000 ML IV (12:47)
[2018-01-14] MEDS: DAPTOMYCIN IVPB (18:01)
[2018-01-14] MEDS: SOD CHLORIDE 0.9% IVPB (18:01)
[2018-01-15] MEDS: METOPROLOL 5 MG INJ IV ×4 (00:19→17:03)
[2018-01-15] MEDS: ACCU-CHEK XX ×6 (00:30→21:00)
[2018-01-15] MEDS: INSULIN ASPART [NOVOLOG] 3 ML PEN SC ×6 (00:30→21:00)
[2018-01-15] MEDS: TPN 1,000 ML IV ×2 (05:14→22:12)
[2018-01-15] MEDS: DEXAMETHASONE 4 MG/ML 1 ML INJ IV ×3 (05:16→22:05)
[2018-01-15] MEDS: metroNIDAZOLE 500 MG/NS (PMX) 100 ML IVPB ×3 (05:17→22:05)
[2018-01-15 06:07] LABS: ANION GAP 6 (5-13); BLOOD UREA NITROGEN 37 mg/dl (7-20); CALCIUM 8.1 mg/dl (8.4-10.2); CARBON DIOXIDE 31 mmol/L (21-31); CHLORIDE 101 mmol/L (97-110); CREATININE 0.34 mg/dl (0.44-1.00); Estimated GFR > 60 mL/min (>60); GLUCOSE 174 mg/dl (70-220); MAGNESIUM 1.8 mg/dl (1.7-2.5); PHOSPHORUS 3.7 mg/dl (2.5-4.9); POTASSIUM 4.5 mmol/L (3.5-5.1); SODIUM 138 mmol/L (135-144)
[2018-01-15 06:10] LABS: TRIGLYCERIDES 268 mg/dl (0-149)
[2018-01-15] MEDS: PANTOPRAZOLE 40 MG INJ IV ×2 (06:29→17:03)
[2018-01-15] MEDS: CHLORHEXIDINE GLUCONATE 15 ML UD CUP MT ×2 (08:18→22:05)
[2018-01-15] MEDS: LEVETIRACETAM 500 MG (PMX) 100 ML IVPB ×2 (08:18→22:12)
[2018-01-15] MEDS: CYCLOPENTOLATE 1% 2 ML OPH RIGHT EYE ×3 (08:19→22:06)
[2018-01-15] MEDS: BALSAM PERU/CASTOR OIL 60 GM TUBE TOP ×2 (08:19→22:06)
[2018-01-15] MEDS: INSULIN GLARGINE [LANTus] (100 UNITS/ML) SYG SC (08:29)
[2018-01-15] MEDS: DAPTOMYCIN IVPB (17:02)
[2018-01-15] MEDS: SOD CHLORIDE 0.9% IVPB (17:02)
[2018-01-16] MEDS: METOPROLOL 5 MG INJ IV ×4 (00:57→17:14)
[2018-01-16] MEDS: INSULIN ASPART [NOVOLOG] 3 ML PEN SC ×6 (01:15→21:34)
[2018-01-16] MEDS: ACCU-CHEK XX ×6 (01:15→21:02)
[2018-01-16] MEDS: metroNIDAZOLE 500 MG/NS (PMX) 100 ML IVPB ×3 (05:59→21:01)
[2018-01-16] MEDS: DEXAMETHASONE 4 MG/ML 1 ML INJ IV ×3 (05:59→21:01)
[2018-01-16] MEDS: PANTOPRAZOLE 40 MG INJ IV ×2 (05:59→17:14)
[2018-01-16] MEDS: BALSAM PERU/CASTOR OIL 60 GM TUBE TOP ×2 (08:04→21:01)
[2018-01-16] MEDS: LEVETIRACETAM 500 MG (PMX) 100 ML IVPB ×2 (08:04→20:59)
[2018-01-16] MEDS: CYCLOPENTOLATE 1% 2 ML OPH RIGHT EYE ×3 (08:04→21:02)
[2018-01-16] MEDS: CHLORHEXIDINE GLUCONATE 15 ML UD CUP MT ×2 (08:04→20:59)
[2018-01-16] MEDS: FAT EMULSION 20% 250 ML IV (08:05)
[2018-01-16] MEDS: INSULIN GLARGINE [LANTus] (100 UNITS/ML) SYG SC (08:25)
[2018-01-16] MEDS: DAPTOMYCIN IVPB (15:30)
[2018-01-16] MEDS: TPN 1,000 ML IV (15:30)
[2018-01-16] MEDS: SOD CHLORIDE 0.9% IVPB (15:30)
[2018-01-17] MEDS: METOPROLOL 5 MG INJ IV ×4 (01:03→19:05)
[2018-01-17] MEDS: ACCU-CHEK XX ×6 (01:03→21:00)
[2018-01-17] MEDS: INSULIN ASPART [NOVOLOG] 3 ML PEN SC ×6 (01:13→21:19)
[2018-01-17] MEDS: DEXAMETHASONE 4 MG/ML 1 ML INJ IV ×3 (05:30→21:27)
[2018-01-17] MEDS: PANTOPRAZOLE 40 MG INJ IV ×2 (05:30→19:05)
[2018-01-17] MEDS: metroNIDAZOLE 500 MG/NS (PMX) 100 ML IVPB ×2 (05:31→13:13)
[2018-01-17] MEDS ORDERED: ROCURONIUM 50 MG INJ (07:00)
[2018-01-17] MEDS ORDERED: ETOMIDATE 20 MG INJ (07:00)
[2018-01-17] MEDS ORDERED: SUCCINYLCHOLINE CHLORIDE 100 MG/5 ML SYG IV (07:00)
[2018-01-17 07:15] LABS: ANION GAP 3 (5-13); BLOOD UREA NITROGEN 33 mg/dl (7-20); CALCIUM 8.2 mg/dl (8.4-10.2); CARBON DIOXIDE 29 mmol/L (21-31); CHLORIDE 104 mmol/L (97-110); Estimated GFR > 60 mL/min (>60); GLUCOSE 150 mg/dl (70-220); MAGNESIUM 1.8 mg/dl (1.7-2.5); PHOSPHORUS 3.5 mg/dl (2.5-4.9); POTASSIUM 3.9 mmol/L (3.5-5.1); SODIUM 136 mmol/L (135-144)
[2018-01-17] MEDS: TPN 1,000 ML IV (08:29)
[2018-01-17] MEDS: LEVETIRACETAM 500 MG (PMX) 100 ML IVPB ×2 (08:54→15:00)
[2018-01-17] MEDS: CHLORHEXIDINE GLUCONATE 15 ML UD CUP MT ×2 (08:57→21:27)
[2018-01-17] MEDS: CYCLOPENTOLATE 1% 2 ML OPH RIGHT EYE ×3 (08:57→21:20)
[2018-01-17] MEDS: BALSAM PERU/CASTOR OIL 60 GM TUBE TOP ×2 (08:58→21:23)
[2018-01-17] MEDS: INSULIN GLARGINE [LANTus] (100 UNITS/ML) SYG SC (09:22)
[2018-01-17] MEDS: MAGNESIUM SULFATE 1 GM/D5W 100 ML IVPB (11:15)
[2018-01-17] MEDS: LORAZEPAM 2 MG INJ IV ×5 (14:34→15:00)
[2018-01-17 16:28] LABS: AADO2 Arterial 286.1 mmHg (7.0-24.0); Allen Test ACCEPTAB; Arterial Base Excess 0.3 mmol/L (-3.0-3); Arterial Blood Gas Oxygen Sat 99.4 mmHG (95.0-98.0); Arterial COHb 0.3 % (0.0-3.0); Arterial Fraction of Oxyhgb 98.7 % (93.0-99.0); Arterial HCO3 23.5 mmol/L (22.0-26.0); Arterial MetHb 0.4 % (0.0-1.5); Arterial Total Hemglobin 12.5 g/dl (12.0-18.0); Arterial pCO2 33.3 mmhg (35-45); MODE VENT - AC; Site Right Radial
[2018-01-17 16:34] LABS: ABNORMAL IP MESSAGE 1; HEMATOCRIT 34.1 % (37.0-47.0); HEMOGLOBIN 11.3 g/dl (12.0-16.0); MEAN CORPUSCULAR HEMOGLOBIN 29.5 pg (29.0-33.0); MEAN CORPUSCULAR HGB CONC 33.1 g/dl (32.0-37.0); MEAN PLATELET VOLUME 10.7 fl (7.4-10.4); PLATELET COUNT 113 10^3/UL (140-415); RED BLOOD COUNT 3.83 10^6/ul (4.20-5.40); RED CELL DISTRIBUTION WIDTH 15.1 % (11.5-14.5)
[2018-01-17 16:34] LABS: WHITE BLOOD COUNT 11.8 10^3/ul (4.8-10.8)
[2018-01-17 16:38] LABS: ADD MAN DIFF? YES; POSITIVE DIFF @See below
[2018-01-17 16:51] LABS: ALANINE AMINOTRANSFERASE 59 IU/L (13-69); ALBUMIN 2.6 g/dl (3.3-4.9); ALBUMIN/GLOBULIN RATIO 0.78; ALKALINE PHOSPHATASE 93 IU/L (42-121); ANION GAP 8 (5-13); ASPARTATE AMINO TRANSFERASE 48 IU/L (15-46); BILIRUBIN,INDIRECT 0.6 mg/dl (0-1.1); BILIRUBIN,TOTAL 0.6 mg/dl (0.2-1.3); BLOOD UREA NITROGEN 34 mg/dl (7-20); CALCIUM 8.3 mg/dl (8.4-10.2); CARBON DIOXIDE 24 mmol/L (21-31); CHLORIDE 105 mmol/L (97-110); CREATININE 0.34 mg/dl (0.44-1.00); Estimated GFR > 60 mL/min (>60); GLUCOSE 154 mg/dl (70-220); POTASSIUM 4.6 mmol/L (3.5-5.1); SODIUM 137 mmol/L (135-144); TOTAL PROTEIN 5.9 g/dl (6.1-8.1)
[2018-01-17] MEDS ORDERED: LEVETIRACETAM 500 MG (PMX) 100 ML IVPB (17:00)
[2018-01-17 17:36] LABS: BAND NEUTROPHILS #M 1.7 10^3/ul (0.0-0.6); BAND NEUTROPHILS % (M) 15 % (0-4); BURR CELLS 2+ (0-0); GIANT THROMBO% (M) 2 % (0-0); LYMPHOCYTES #M 0.3 10^3/ul (0.8-2.9); LYMPHOCYTES % (M) 3 % (15-51); METAMYELOCYTES #M 0.2 10^3/ul (0.0-0.0); METAMYELOCYTES %M 2 % (0-0); PLASMA CELLS #M 0.1 10^3/ul (0.0-0.0); PLASMAC%(M) 1 % (0); PLATELET ESTIMATE DECREASED; POIKILOCYTOSIS 2+ (0-0); SEG NEUT #M 9.5 10^3/ul (1.6-7.5); SEGMENTED NEUTROPHILS (M) % 79 % (39-77); SMUDGE%M 54 % (0-0)
[2018-01-17] MEDS: SOD CHLORIDE 0.9% IVPB (18:49)
[2018-01-17] MEDS: DAPTOMYCIN IVPB (18:49)
[2018-01-17] MEDS ORDERED: LEVETIRACETAM 1000 MG (PMX) 100 ML IVPB (21:00)
[2018-01-17] MEDS: LEVETIRACETAM 1000 MG (PMX) 100 ML IVPB (21:12)
[2018-01-18] MEDS: ACCU-CHEK XX ×6 (01:00→20:40)
[2018-01-18] MEDS: TPN 1,000 ML IV ×2 (01:10→16:10)
[2018-01-18] MEDS: METOPROLOL 5 MG INJ IV ×4 (01:12→17:51)
[2018-01-18] MEDS: INSULIN ASPART [NOVOLOG] 3 ML PEN SC ×6 (01:27→20:38)
[2018-01-18] MEDS: MIDAZOLAM (DRIP) 50 mg/50 mL 50 ML IV (02:37)
[2018-01-18 05:19] LABS: ABNORMAL IP MESSAGE 1; HEMATOCRIT 31.1 % (37.0-47.0); HEMOGLOBIN 10.1 g/dl (12.0-16.0); MEAN CORPUSCULAR HEMOGLOBIN 29.2 pg (29.0-33.0); MEAN CORPUSCULAR HGB CONC 32.5 g/dl (32.0-37.0); MEAN CORPUSCULAR VOLUME 89.9 fl (82.0-101.0); MEAN PLATELET VOLUME 10.8 fl (7.4-10.4); PLATELET COUNT 95 10^3/UL (140-415); RED BLOOD COUNT 3.46 10^6/ul (4.20-5.40); RED CELL DISTRIBUTION WIDTH 15.5 % (11.5-14.5)
[2018-01-18 05:19] LABS: WHITE BLOOD COUNT 9.2 10^3/ul (4.8-10.8)
[2018-01-18 05:37] LABS: POSITIVE DIFF @See below
[2018-01-18 05:38] LABS: ADD MAN DIFF? YES
[2018-01-18] MEDS: metroNIDAZOLE 500 MG/NS (PMX) 100 ML IVPB ×4 (06:08→22:24)
[2018-01-18] MEDS: DEXAMETHASONE 4 MG/ML 1 ML INJ IV ×3 (06:08→22:24)
[2018-01-18] MEDS: PANTOPRAZOLE 40 MG INJ IV ×2 (06:08→17:51)
[2018-01-18 06:26] LABS: ANION GAP 8 (5-13); BLOOD UREA NITROGEN 36 mg/dl (7-20); CALCIUM 8.2 mg/dl (8.4-10.2); CARBON DIOXIDE 23 mmol/L (21-31); CHLORIDE 106 mmol/L (97-110); CREATININE 0.32 mg/dl (0.44-1.00); Estimated GFR > 60 mL/min (>60); GLUCOSE 157 mg/dl (70-220); MAGNESIUM 1.9 mg/dl (1.7-2.5); PHOSPHORUS 3.7 mg/dl (2.5-4.9); POTASSIUM 4.1 mmol/L (3.5-5.1); SODIUM 137 mmol/L (135-144)
[2018-01-18 07:45] LABS: ANISOCYTOSIS 2+ (0-0); BAND NEUTROPHILS #M 1.3 10^3/ul (0.0-0.6); BAND NEUTROPHILS % (M) 15 % (0-4); BURR CELLS 2+ (0-0); LYMPHOCYTES #M 0.5 10^3/ul (0.8-2.9); LYMPHOCYTES % (M) 6 % (15-51); METAMYELOCYTES #M 0.4 10^3/ul (0.0-0.0); METAMYELOCYTES %M 5 % (0-0); MICROCYTOSIS 1+ (0-0); MONOCYTES % (M) 1 % (0-11); MYELOCYTES #M 0.3 10^3/ul (0.0-0.0); MYELOCYTES % (M) 4 % (0-0); PLATELET ESTIMATE DECREASED; POIKILOCYTOSIS 3+ (0-0); POLYCHROMASIA 3+ (0-0); SEG NEUT #M 6.5 10^3/ul (1.6-7.5); SEGMENTED NEUTROPHILS (M) % 69 % (39-77)
[2018-01-18] MEDS: INSULIN GLARGINE [LANTus] (100 UNITS/ML) SYG SC (08:24)
[2018-01-18] MEDS: BALSAM PERU/CASTOR OIL 60 GM TUBE TOP ×2 (08:25→20:23)
[2018-01-18] MEDS: CHLORHEXIDINE GLUCONATE 15 ML UD CUP MT ×2 (08:35→20:22)
[2018-01-18] MEDS: CYCLOPENTOLATE 1% 2 ML OPH RIGHT EYE ×3 (08:35→20:23)
[2018-01-18] MEDS: LEVETIRACETAM 1000 MG (PMX) 100 ML IVPB ×2 (09:04→20:23)
[2018-01-18] MEDS: DAPTOMYCIN IVPB (16:06)
[2018-01-18] MEDS: SOD CHLORIDE 0.9% IVPB (16:06)
[2018-01-19] MEDS: METOPROLOL 5 MG INJ IV ×4 (01:06→18:07)
[2018-01-19] MEDS: INSULIN ASPART [NOVOLOG] 3 ML PEN SC ×6 (01:18→21:02)
[2018-01-19] MEDS: ACCU-CHEK XX ×6 (01:20→20:57)
[2018-01-19] MEDS: PANTOPRAZOLE 40 MG INJ IV ×2 (05:28→18:07)
[2018-01-19] MEDS: DEXAMETHASONE 4 MG/ML 1 ML INJ IV ×3 (05:30→22:27)
[2018-01-19] MEDS: metroNIDAZOLE 500 MG/NS (PMX) 100 ML IVPB ×3 (05:30→22:27)
[2018-01-19 05:32] LABS: AADO2 Arterial 46.4 mmHg (7.0-24.0); Allen Test ACCEPTAB; Arterial Base Excess -3.8 mmol/L (-3.0-3); Arterial Blood Gas Oxygen Sat 98.5 mmHG (95.0-98.0); Arterial COHb 0.4 % (0.0-3.0); Arterial Fraction of Oxyhgb 97.9 % (93.0-99.0); Arterial HCO3 19.2 mmol/L (22.0-26.0); Arterial MetHb 0.2 % (0.0-1.5); Arterial Total Hemglobin 12.5 g/dl (12.0-18.0); Arterial pCO2 29.1 mmhg (35-45); MODE VENT - AC; Site Right Radial
[2018-01-19 05:51] LABS: ABNORMAL IP MESSAGE 1; HEMATOCRIT 29.6 % (37.0-47.0); MEAN CORPUSCULAR HEMOGLOBIN 30.5 pg (29.0-33.0); MEAN CORPUSCULAR HGB CONC 33.8 g/dl (32.0-37.0); MEAN CORPUSCULAR VOLUME 90.2 fl (82.0-101.0); MEAN PLATELET VOLUME 11.6 fl (7.4-10.4); PLATELET COUNT 95 10^3/UL (140-415); RED BLOOD COUNT 3.28 10^6/ul (4.20-5.40); RED CELL DISTRIBUTION WIDTH 15.2 % (11.5-14.5)
[2018-01-19 05:51] LABS: WHITE BLOOD COUNT 8.1 10^3/ul (4.8-10.8)
[2018-01-19 05:58] LABS: LACTIC ACID 1.4 mmol/L (0.5-2.0)
[2018-01-19 06:08] LABS: ALANINE AMINOTRANSFERASE 55 IU/L (13-69); ALBUMIN 2.2 g/dl (3.3-4.9); ALBUMIN/GLOBULIN RATIO 0.81; ALKALINE PHOSPHATASE 84 IU/L (42-121); ANION GAP 5 (5-13); ASPARTATE AMINO TRANSFERASE 25 IU/L (15-46); BILIRUBIN,INDIRECT 0.3 mg/dl (0-1.1); BILIRUBIN,TOTAL 0.3 mg/dl (0.2-1.3); BLOOD UREA NITROGEN 34 mg/dl (7-20); CARBON DIOXIDE 22 mmol/L (21-31); CHLORIDE 108 mmol/L (97-110); CREATININE 0.31 mg/dl (0.44-1.00); Estimated GFR > 60 mL/min (>60); GLUCOSE 167 mg/dl (70-220); POTASSIUM 4.2 mmol/L (3.5-5.1); SODIUM 135 mmol/L (135-144); TOTAL PROTEIN 4.9 g/dl (6.1-8.1)
[2018-01-19 06:10] LABS: CREATINE KINASE < 20 IU/L (23-200)
[2018-01-19 06:12] LABS: PHOSPHORUS 3.5 mg/dl (2.5-4.9)
[2018-01-19 06:12] LABS: MAGNESIUM 1.9 mg/dl (1.7-2.5)
[2018-01-19 06:15] LABS: ADD MAN DIFF? YES; POSITIVE DIFF @See below
[2018-01-19] MEDS: TPN 1,000 ML IV ×2 (07:30→22:34)
[2018-01-19 07:34] LABS: BAND NEUTROPHILS #M 0.1 10^3/ul (0.0-0.6); BAND NEUTROPHILS % (M) 2 % (0-4); GIANT THROMBO% (M) 1 % (0-0); LYMPHOCYTES #M 0.4 10^3/ul (0.8-2.9); LYMPHOCYTES % (M) 5 % (15-51); METAMYELOCYTES %M 1 % (0-0); MONOCYTE #M 0.1 10^3/ul (0.3-0.9); MONOCYTES % (M) 2 % (0-11); MYELOCYTES #M 0.1 10^3/ul (0.0-0.0); MYELOCYTES % (M) 2 % (0-0); PLATELET ESTIMATE DECREASED; SEG NEUT #M 7.1 10^3/ul (1.6-7.5); SEGMENTED NEUTROPHILS (M) % 88 % (39-77); SMUDGE%M 9 % (0-0)
[2018-01-19] MEDS: LEVETIRACETAM 1000 MG (PMX) 100 ML IVPB ×2 (08:15→20:57)
[2018-01-19] MEDS: FAT EMULSION 20% 250 ML IV (08:15)
[2018-01-19] MEDS: BALSAM PERU/CASTOR OIL 60 GM TUBE TOP ×2 (08:15→20:06)
[2018-01-19] MEDS: CHLORHEXIDINE GLUCONATE 15 ML UD CUP MT ×2 (08:15→20:05)
[2018-01-19] MEDS: CYCLOPENTOLATE 1% 2 ML OPH RIGHT EYE ×3 (08:16→20:06)
[2018-01-19] MEDS: INSULIN GLARGINE [LANTus] (100 UNITS/ML) SYG SC (08:29)
[2018-01-19] MEDS: DAPTOMYCIN IVPB (16:26)
[2018-01-19] MEDS: SOD CHLORIDE 0.9% IVPB (16:26)
[2018-01-20] MEDS: METOPROLOL 5 MG INJ IV ×4 (00:42→17:13)
[2018-01-20] MEDS: ACCU-CHEK XX ×6 (00:49→20:03)
[2018-01-20] MEDS: INSULIN ASPART [NOVOLOG] 3 ML PEN SC ×6 (00:56→21:00)
[2018-01-20 05:22] LABS: WHITE BLOOD COUNT 9.8 10^3/ul (4.8-10.8)
[2018-01-20 05:22] LABS: ABNORMAL IP MESSAGE 1; HEMATOCRIT 30.7 % (37.0-47.0); HEMOGLOBIN 10.3 g/dl (12.0-16.0); MEAN CORPUSCULAR HEMOGLOBIN 30.3 pg (29.0-33.0); MEAN CORPUSCULAR HGB CONC 33.6 g/dl (32.0-37.0); MEAN CORPUSCULAR VOLUME 90.3 fl (82.0-101.0); MEAN PLATELET VOLUME 11.3 fl (7.4-10.4); PLATELET COUNT 115 10^3/UL (140-415); RED CELL DISTRIBUTION WIDTH 15.1 % (11.5-14.5)
[2018-01-20 05:25] LABS: ADD MAN DIFF? YES; POSITIVE DIFF @See below
[2018-01-20] MEDS: DEXAMETHASONE 4 MG/ML 1 ML INJ IV ×3 (05:45→22:59)
[2018-01-20] MEDS: metroNIDAZOLE 500 MG/NS (PMX) 100 ML IVPB ×3 (05:45→22:59)
[2018-01-20] MEDS: PANTOPRAZOLE 40 MG INJ IV ×2 (05:45→17:13)
[2018-01-20 05:54] LABS: ANION GAP 7 (5-13); BLOOD UREA NITROGEN 32 mg/dl (7-20); CALCIUM 8.4 mg/dl (8.4-10.2); CARBON DIOXIDE 23 mmol/L (21-31); CHLORIDE 107 mmol/L (97-110); Estimated GFR > 60 mL/min (>60); GLUCOSE 164 mg/dl (70-220); MAGNESIUM 1.9 mg/dl (1.7-2.5); PHOSPHORUS 3.5 mg/dl (2.5-4.9); POTASSIUM 3.9 mmol/L (3.5-5.1); SODIUM 137 mmol/L (135-144)
[2018-01-20 07:55] LABS: AADO2 Arterial 47.2 mmHg (7.0-24.0); Arterial Base Excess -2.5 mmol/L (-3.0-3); Arterial Blood Gas Oxygen Sat 98.3 mmHG (95.0-98.0); Arterial COHb 0.3 % (0.0-3.0); Arterial Fraction of Oxyhgb 97.6 % (93.0-99.0); Arterial HCO3 20.2 mmol/L (22.0-26.0); Arterial MetHb 0.4 % (0.0-1.5); Arterial Total Hemglobin 11.3 g/dl (12.0-18.0); Arterial pCO2 28.4 mmhg (35-45); MODE VENT - AC; Site Right Brachial
[2018-01-20 08:01] LABS: ANISOCYTOSIS 1+ (0-0); BAND NEUTROPHILS #M 2.4 10^3/ul (0.0-0.6); BAND NEUTROPHILS % (M) 25 % (0-4); BURR CELLS 1+ (0-0); LYMPHOCYTES #M 0.2 10^3/ul (0.8-2.9); LYMPHOCYTES % (M) 3 % (15-51); METAMYELOCYTES #M 0.2 10^3/ul (0.0-0.0); METAMYELOCYTES %M 3 % (0-0); MICROCYTOSIS 1+ (0-0); MONOCYTE #M 0.2 10^3/ul (0.3-0.9); MONOCYTES % (M) 3 % (0-11); MYELOCYTES #M 0.2 10^3/ul (0.0-0.0); MYELOCYTES % (M) 3 % (0-0); PLATELET ESTIMATE DECREASED; POIKILOCYTOSIS 1+ (0-0); PROMYELOCYTES % (M) 1 % (0-0); REACTIVE LYMPHOCYTES #M 0.3 10^3/ul (0.0-0.0); REACTIVE LYMPHOCYTES% (M) 4 % (0-0); SEG NEUT #M 5.9 10^3/ul (1.6-7.5); SEGMENTED NEUTROPHILS (M) % 58 % (39-77); SMUDGE%M 19 % (0-0)
[2018-01-20] MEDS: BALSAM PERU/CASTOR OIL 60 GM TUBE TOP ×2 (09:14→20:03)
[2018-01-20] MEDS: CYCLOPENTOLATE 1% 2 ML OPH RIGHT EYE ×2 (09:14→13:00)
[2018-01-20] MEDS: CHLORHEXIDINE GLUCONATE 15 ML UD CUP MT ×2 (09:14→20:03)
[2018-01-20] MEDS: LEVETIRACETAM 1000 MG (PMX) 100 ML IVPB ×2 (09:14→20:03)
[2018-01-20] MEDS: INSULIN GLARGINE [LANTus] (100 UNITS/ML) SYG SC (09:17)
[2018-01-20] MEDS: MAGNESIUM SULFATE 2 GM/50 ML 50 ML IVPB (14:56)
[2018-01-20] MEDS: TPN 1,000 ML IV (15:23)
[2018-01-20] MEDS: SOD CHLORIDE 0.9% IVPB (15:58)
[2018-01-20] MEDS: DAPTOMYCIN IVPB (15:58)
[2018-01-20 18:00] LABS: AADO2 Arterial 80.9 mmHg (7.0-24.0); Allen Test ACCEPTAB; Arterial Base Excess -0.5 mmol/L (-3.0-3); Arterial Blood Gas Oxygen Sat 97.6 mmHG (95.0-98.0); Arterial COHb 0.3 % (0.0-3.0); Arterial HCO3 22.4 mmol/L (22.0-26.0); Arterial MetHb 0.3 % (0.0-1.5); Arterial Total Hemglobin 11.9 g/dl (12.0-18.0); Arterial pCO2 31.4 mmhg (35-45); Blood Gas PS 10; MODE VENT - CPAP; Site Right Radial
[2018-01-21] MEDS: METOPROLOL 5 MG INJ IV ×4 (00:15→18:04)
[2018-01-21] MEDS: ACCU-CHEK XX ×6 (01:00→21:00)
[2018-01-21] MEDS: INSULIN ASPART [NOVOLOG] 3 ML PEN SC ×6 (01:00→21:24)
[2018-01-21] MEDS: DEXAMETHASONE 4 MG/ML 1 ML INJ IV ×3 (05:24→22:43)
[2018-01-21] MEDS: PANTOPRAZOLE 40 MG INJ IV ×2 (05:25→18:04)
[2018-01-21] MEDS: metroNIDAZOLE 500 MG/NS (PMX) 100 ML IVPB ×3 (05:25→22:43)
[2018-01-21 05:30] LABS: ANION GAP 5 (5-13); BLOOD UREA NITROGEN 33 mg/dl (7-20); CALCIUM 7.8 mg/dl (8.4-10.2); CARBON DIOXIDE 26 mmol/L (21-31); CHLORIDE 106 mmol/L (97-110); CREATININE 0.29 mg/dl (0.44-1.00); Estimated GFR > 60 mL/min (>60); GLUCOSE 145 mg/dl (70-220); MAGNESIUM 2.1 mg/dl (1.7-2.5); PHOSPHORUS 3.4 mg/dl (2.5-4.9); POTASSIUM 3.9 mmol/L (3.5-5.1); SODIUM 137 mmol/L (135-144)
[2018-01-21] MEDS: LEVETIRACETAM 1000 MG (PMX) 100 ML IVPB ×2 (08:27→21:19)
[2018-01-21] MEDS: CHLORHEXIDINE GLUCONATE 15 ML UD CUP MT ×2 (08:27→21:20)
[2018-01-21] MEDS: FAT EMULSION 20% 250 ML IV (08:27)
[2018-01-21] MEDS: INSULIN GLARGINE [LANTus] (100 UNITS/ML) SYG SC (08:28)
[2018-01-21] MEDS: BALSAM PERU/CASTOR OIL 60 GM TUBE TOP ×2 (08:33→21:19)
[2018-01-21] MEDS: TPN 1,000 ML IV ×2 (11:20→22:44)
[2018-01-21] MEDS: SOD CHLORIDE 0.9% IVPB (16:09)
[2018-01-21] MEDS: DAPTOMYCIN IVPB (16:09)
[2018-01-22] MEDS: METOPROLOL 5 MG INJ IV ×2 (00:51→05:35)
[2018-01-22] MEDS: INSULIN ASPART [NOVOLOG] 3 ML PEN SC ×6 (00:59→20:57)
[2018-01-22] MEDS: ACCU-CHEK XX ×6 (01:00→21:09)
[2018-01-22] MEDS: metroNIDAZOLE 500 MG/NS (PMX) 100 ML IVPB ×3 (05:35→21:09)
[2018-01-22] MEDS: PANTOPRAZOLE 40 MG INJ IV ×2 (05:36→17:00)
[2018-01-22] MEDS: DEXAMETHASONE 4 MG/ML 1 ML INJ IV ×3 (05:37→21:09)
[2018-01-22 06:51] LABS: ANION GAP 8 (5-13); BLOOD UREA NITROGEN 32 mg/dl (7-20); CALCIUM 7.9 mg/dl (8.4-10.2); CARBON DIOXIDE 28 mmol/L (21-31); CHLORIDE 100 mmol/L (97-110); Estimated GFR > 60 mL/min (>60); GLUCOSE 143 mg/dl (70-220); MAGNESIUM 1.9 mg/dl (1.7-2.5); PHOSPHORUS 3.6 mg/dl (2.5-4.9); POTASSIUM 4.4 mmol/L (3.5-5.1); SODIUM 136 mmol/L (135-144)
[2018-01-22] MEDS: INSULIN GLARGINE [LANTus] (100 UNITS/ML) SYG SC (08:13)
[2018-01-22] MEDS: BALSAM PERU/CASTOR OIL 60 GM TUBE TOP ×2 (08:13→21:10)
[2018-01-22] MEDS: CHLORHEXIDINE GLUCONATE 15 ML UD CUP MT ×2 (08:13→20:45)
[2018-01-22] MEDS: LEVETIRACETAM 1000 MG (PMX) 100 ML IVPB ×2 (10:20→20:45)
[2018-01-22] MEDS: SOD CHLORIDE 0.9% IVPB (16:46)
[2018-01-22] MEDS: DAPTOMYCIN IVPB (16:46)
[2018-01-22] MEDS: TPN 1,000 ML IV ×2 (16:50→20:40)
[2018-01-23] MEDS: ACCU-CHEK XX ×3 (01:37→09:16)
[2018-01-23] MEDS: INSULIN ASPART [NOVOLOG] 3 ML PEN SC ×3 (01:37→09:28)
[2018-01-23] MEDS: DEXAMETHASONE 4 MG/ML 1 ML INJ IV (05:40)
[2018-01-23] MEDS: PANTOPRAZOLE 40 MG INJ IV (05:40)
[2018-01-23] MEDS: metroNIDAZOLE 500 MG/NS (PMX) 100 ML IVPB ×3 (05:45→22:20)
[2018-01-23 08:50] LABS: ANION GAP 7 (5-13); BLOOD UREA NITROGEN 33 mg/dl (7-20); CARBON DIOXIDE 27 mmol/L (21-31); CHLORIDE 99 mmol/L (97-110); CREATININE 0.25 mg/dl (0.44-1.00); Estimated GFR > 60 mL/min (>60); GLUCOSE 136 mg/dl (70-220); MAGNESIUM 1.9 mg/dl (1.7-2.5); POTASSIUM 4.3 mmol/L (3.5-5.1); SODIUM 133 mmol/L (135-144)
[2018-01-23] MEDS: FAT EMULSION 20% 250 ML IV (09:08)
[2018-01-23] MEDS: CHLORHEXIDINE GLUCONATE 15 ML UD CUP MT (09:16)
[2018-01-23] MEDS: BALSAM PERU/CASTOR OIL 60 GM TUBE TOP ×2 (09:16→22:20)
[2018-01-23] MEDS: LEVETIRACETAM 1000 MG (PMX) 100 ML IVPB ×2 (09:16→21:00)
[2018-01-23] MEDS: INSULIN GLARGINE [LANTus] (100 UNITS/ML) SYG SC (09:28)
[2018-01-23] MEDS ORDERED: METOPROLOL 5 MG INJ IV (13:00)
[2018-01-23] MEDS ORDERED: MAGNESIUM SULFATE 2 GM/50 ML 50 ML IVPB (13:00)
[2018-01-23] MEDS: DAPTOMYCIN IVPB (15:58)
[2018-01-23] MEDS: SOD CHLORIDE 0.9% IVPB (15:58)
[2018-01-23] MEDS: SOD CHLORIDE 0.9% 100 ML (21:23)
[2018-01-23] MEDS: IODIXANOL LOCM 100 ML BTL (21:23)
[2018-01-24] MEDS: metroNIDAZOLE 500 MG/NS (PMX) 100 ML IVPB ×2 (04:35→13:39)
[2018-01-24 06:47] LABS: ANION GAP 7 (5-13); BLOOD UREA NITROGEN 29 mg/dl (7-20); CALCIUM 8.2 mg/dl (8.4-10.2); CARBON DIOXIDE 28 mmol/L (21-31); CHLORIDE 101 mmol/L (97-110); CREATININE 0.33 mg/dl (0.44-1.00); Estimated GFR > 60 mL/min (>60); MAGNESIUM 1.6 mg/dl (1.7-2.5); PHOSPHORUS 4.3 mg/dl (2.5-4.9); POTASSIUM 3.8 mmol/L (3.5-5.1); SODIUM 136 mmol/L (135-144)
[2018-01-24 06:55] LABS: GLUCOSE 41 mg/dl (70-220)
[2018-01-24] MEDS ORDERED: DEXTROSE 50% 50 ML SYRINGE (06:57)
[2018-01-24 07:11] LABS: PREALBUMIN 31.3 mg/dl (17.6-36.0)
[2018-01-24 07:18] LABS: TRIGLYCERIDES 577 mg/dl (0-149)
[2018-01-24] MEDS: DEXTROSE 50% 50 ML SYRINGE IV ×2 (07:41→18:12)
[2018-01-24] MEDS ORDERED: DEXTROSE 50% 50 ML SYRINGE IV (08:00)
[2018-01-24] MEDS: LEVETIRACETAM 1000 MG (PMX) 100 ML IVPB ×2 (09:15→20:46)
[2018-01-24] MEDS: BALSAM PERU/CASTOR OIL 60 GM TUBE TOP ×2 (09:16→20:47)
[2018-01-24] MEDS: DAPTOMYCIN IVPB (16:39)
[2018-01-24] MEDS: SOD CHLORIDE 0.9% IVPB (16:39)
[2018-01-25] MEDS: BALSAM PERU/CASTOR OIL 60 GM TUBE TOP ×2 (08:21→20:44)
[2018-01-25] MEDS: LEVETIRACETAM 1000 MG (PMX) 100 ML IVPB ×2 (08:21→20:40)
[2018-01-26 06:03] LABS: ABNORMAL IP MESSAGE 1; HEMOGLOBIN 9.9 g/dl (12.0-16.0); MEAN CORPUSCULAR HEMOGLOBIN 30.3 pg (29.0-33.0); MEAN CORPUSCULAR VOLUME 91.7 fl (82.0-101.0); MEAN PLATELET VOLUME 10.1 fl (7.4-10.4); PLATELET COUNT 103 10^3/UL (140-415); RED BLOOD COUNT 3.27 10^6/ul (4.20-5.40); RED CELL DISTRIBUTION WIDTH 15.9 % (11.5-14.5)
[2018-01-26 06:03] LABS: WHITE BLOOD COUNT 6.2 10^3/ul (4.8-10.8)
[2018-01-26 06:23] LABS: ADD MAN DIFF? YES; POSITIVE DIFF @See below
[2018-01-26 06:54] LABS: ANION GAP 11 (5-13); BLOOD UREA NITROGEN 20 mg/dl (7-20); CARBON DIOXIDE 23 mmol/L (21-31); CHLORIDE 105 mmol/L (97-110); Estimated GFR > 60 mL/min (>60); GLUCOSE 78 mg/dl (70-220); POTASSIUM 3.4 mmol/L (3.5-5.1); SODIUM 139 mmol/L (135-144)
[2018-01-26 07:35] LABS: ANISOCYTOSIS 1+ (0-0); BAND NEUTROPHILS #M 0.9 10^3/ul (0.0-0.6); BAND NEUTROPHILS % (M) 16 % (0-4); LYMPHOCYTES #M 0.8 10^3/ul (0.8-2.9); LYMPHOCYTES % (M) 13 % (15-51); METAMYELOCYTES %M 1 % (0-0); MICROCYTOSIS 1+ (0-0); MONOCYTE #M 0.1 10^3/ul (0.3-0.9); MONOCYTES % (M) 2 % (0-11); MYELOCYTES #M 0.1 10^3/ul (0.0-0.0); MYELOCYTES % (M) 3 % (0-0); PLATELET ESTIMATE DECREASED; POIKILOCYTOSIS 1+ (0-0); REACTIVE LYMPHOCYTES #M 0.4 10^3/ul (0.0-0.0); REACTIVE LYMPHOCYTES% (M) 7 % (0-0); SEG NEUT #M 3.7 10^3/ul (1.6-7.5); SEGMENTED NEUTROPHILS (M) % 58 % (39-77); SMUDGE%M 23 % (0-0)
[2018-01-26] MEDS: LEVETIRACETAM 1000 MG (PMX) 100 ML IVPB ×2 (09:27→20:28)
[2018-01-26] MEDS: BALSAM PERU/CASTOR OIL 60 GM TUBE TOP ×2 (09:27→20:28)
[2018-01-26] MEDS: ACETAMINOPHEN 650 MG SUPP PR (22:06)
[2018-01-27] MEDS: LEVETIRACETAM 1000 MG (PMX) 100 ML IVPB (08:36)
[2018-01-27] MEDS: BALSAM PERU/CASTOR OIL 60 GM TUBE TOP ×2 (08:39→21:16)
[2018-01-27] MEDS ORDERED: LEVETIRACETAM 500 MG TAB PO (21:00)
[2018-01-27] MEDS: LEVETIRACETAM 500 MG PR (21:16)
[2018-01-28] MEDS: LEVETIRACETAM 500 MG PR ×2 (08:50→20:52)
[2018-01-28] MEDS: BALSAM PERU/CASTOR OIL 60 GM TUBE TOP (08:50)
[2018-01-28] MEDS ORDERED: ATROPINE 1% 5 ML OPH SL (10:30)
[2018-01-28] MEDS ORDERED: BISACODYL 10 MG SUPP PR (10:30)
[2018-01-28] MEDS ORDERED: LORAZEPAM 1 MG TAB PO (10:30)
[2018-01-28] MEDS ORDERED: ARTIFICIAL TEARS 15 ML OPH BOTH EYES (10:30)
[2018-01-28] MEDS ORDERED: DIMETHICONE STICK TOP (10:30)
[2018-01-29] MEDS: LEVETIRACETAM 500 MG PR ×2 (08:50→21:00)
[2018-01-29] MEDS: POTASSIUM CHLORIDE 100 ML IVPB (14:50)
[2018-01-29] MEDS: morphine 2 MG INJ IV (14:57)
[2018-01-30] MEDS: LEVETIRACETAM 500 MG PR ×2 (08:01→21:02)
[2018-01-31] MEDS: LEVETIRACETAM 500 MG PR ×2 (09:45→20:13)
[2018-02-01] MEDS: LEVETIRACETAM 500 MG PR (08:42)
[2018-02-01] MEDS: LEVETIRACETAM 1000 MG (PMX) 100 ML IVPB (21:26)
[2018-02-02] MEDS: LEVETIRACETAM 1000 MG (PMX) 100 ML IVPB ×2 (10:41→20:53)
[2018-02-03] MEDS: LEVETIRACETAM 1000 MG (PMX) 100 ML IVPB (08:49)
[2018-02-03] MEDS: HEPARIN (100 UNITS/ML) 5 ML SYG CATHETER (15:42)
== END 2018-02-03 15:51 | disposition hospice, home (50) | DRG 853 ==
LOC: ICU 20:20 → 6WM 01-22 15:17 → ICU 22:17 → 2NE 01-28 12:26
PROVIDERS: Internal Medicine
PROC: 0J9C30Z Drainage of Pelvic Region Subcutaneous Tissue and Fascia with Drainage Device, Percutaneous Approach (ICD-10-PCS; 2018-01-07)
PROC: 5A1955Z Respiratory Ventilation, Greater than 96 Consecutive Hours (ICD-10-PCS; 2018-01-17)
PROC: 0BH17EZ Insertion of Endotracheal Airway into Trachea, Via Natural or Artificial Opening (ICD-10-PCS; 2018-01-17)
PROC: 0W9J40Z Drainage of Pelvic Cavity with Drainage Device, Percutaneous Endoscopic Approach (ICD-10-PCS; principal; 2018-01-28)
DX: A41.9 Sepsis, unspecified organism (principal); R65.21 Severe sepsis with septic shock; K63.1 Perforation of intestine (nontraumatic); I26.99 Other pulmonary embolism without acute cor pulmonale; J96.90 Respiratory failure, unspecified, unspecified whether with hypoxia or hypercapnia; C71.9 Malignant neoplasm of brain, unspecified; K62.5 Hemorrhage of anus and rectum; D62 Acute posthemorrhagic anemia; B00.52 Herpesviral keratitis; I47.1 Supraventricular tachycardia; G93.40 Encephalopathy, unspecified; K63.0 Abscess of intestine; E44.0 Moderate protein-calorie malnutrition; I82.501 Chronic embolism and thrombosis of unspecified deep veins of right lower extremity; N39.0 Urinary tract infection, site not specified; G40.909 Epilepsy, unspecified, not intractable, without status epilepticus; I95.9 Hypotension, unspecified; R14.0 Abdominal distension (gaseous); D69.6 Thrombocytopenia, unspecified; R41.82 Altered mental status, unspecified; R13.10 Dysphagia, unspecified; Z92.21 Personal history of antineoplastic chemotherapy; Z98.890 Other specified postprocedural states; Z85.841 Personal history of malignant neoplasm of brain; Z79.01 Long term (current) use of anticoagulants; Z68.29 Body mass index [BMI] 29.0-29.9, adult; F32.9 Major depressive disorder, single episode, unspecified; R94.31 Abnormal electrocardiogram [ECG] [EKG]; Z88.0 Allergy status to penicillin; Z88.2 Allergy status to sulfonamides; Z91.030 Bee allergy status; N73.9 Female pelvic inflammatory disease, unspecified; Z51.5 Encounter for palliative care; Z66 Do not resuscitate
CPT/HCPCS: 31500; 36430; 36589; 36600; 70450; 71045; 74018; 74019; 74176; 74177; 77012; 80048; 80053; 81001; 82550; 82803; 82962; 83036; 83605; 83735; 84100; 84134; 84439; 84443; 84478; 85014; 85018; 85025; 85049; 85362; 85378; 85384; 85610; 85670; 85730; 86022; 86644; 86703; 86850; 86900; 86901; 86920; 86945; 87040; 87070; 87075; 87081; 87086; 93306; 94002; 94003; 94640; 94664; 94668; 94770; 95819